=== PATIENT | male | born 1940 | race Caucasian/White ===

== ENCOUNTER 2023-11-29 12:49 | Outpatient (REF) | payer MEDICARE, SELFPAY ==
[2023-11-29 14:13] LABS: MANUAL DIFF FLAG NO
[2023-11-29 14:19] LABS: Basophils Percent Auto 0.3 % (0-2); Eosinophils Absolute Auto 0.2 X10*3/uL (0.0-0.4); Eosinophils Percent Auto 2.3 % (0-4); Hematocrit 37.5 % (42.0-52.0); Hemoglobin 12.9 g/dl (14.0-18.0); Imm Gran Abs Auto 0.03 X10*3/uL (0.00-0.03); Imm Gran Pct Auto 0.4 % (0.0-0.4); Lymphocytes Absolute Auto 1.3 X10*3/uL (1.2-4.9); Lymphocytes Percent Auto 17.4 % (20-40); Mean Corpuscular HGB Conc 34.4 g/dl (31.0-36.0); Mean Corpuscular Hemoglobin 31.1 pg (27.0-33.0); Mean Corpuscular Volume 90.4 fL (80.0-98.0); Mean Platelet Volume 10.3 fL (9.4-12.4); Monocytes Absolute Auto 0.6 X10*3/uL (0.1-1.2); Monocytes Percent Auto 8.6 % (2-11); Neutrophils Absolute Auto 5.3 x10*3/uL (2.0-8.3); Platelet Count 234 X10*3/uL (160-400); Red Blood Count 4.15 X10*6/uL (4.60-5.80); Red Cell Distribution Width 13.5 % (11.0-16.0); White Blood Count 7.4 X10*3/uL (4.8-10.8)
[2023-11-29 15:30] LABS: Alanine Aminotransferase 29 U/L (0-40); Albumin Level 3.8 g/dL (3.5-5.0); Alkaline Phosphatase 118 U/L (39-117); Aspartate Amino Transferase 18 U/L (5-37); Bilirubin Direct 0.1 mg/dL (0.0-0.5); Bilirubin Total 0.4 mg/dL (0.0-1.0); Blood Urea Nitrogen 15 mg/dL (9-16); Estimated Glomerular Filt Rate > 60; Total Protein 6.3 g/dL (6.5-8.0)
== END 2023-11-29 12:50 | disposition home or self-care (01) ==
LOC: HO.HVNA 12:49
PROVIDERS: Visit Provider Surgery
DX: T81.49XD Infection following a procedure, other surgical site, subsequent encounter (principal); Z79.2 Long term (current) use of antibiotics
CPT/HCPCS: 36415; 80076; 82565; 84520; 85025

== ENCOUNTER 2023-12-06 12:47 | Outpatient (REF) | payer MEDICARE, SELFPAY ==
[2023-12-06 12:50] LABS: MANUAL DIFF FLAG NO
[2023-12-06 12:55] LABS: Basophils Percent Auto 0.5 % (0-2); Eosinophils Absolute Auto 0.1 X10*3/uL (0.0-0.4); Hematocrit 39.4 % (42.0-52.0); Hemoglobin 13.4 g/dl (14.0-18.0); Imm Gran Abs Auto 0.02 X10*3/uL (0.00-0.03); Imm Gran Pct Auto 0.3 % (0.0-0.4); Lymphocytes Absolute Auto 1.4 X10*3/uL (1.2-4.9); Lymphocytes Percent Auto 21.6 % (20-40); Mean Corpuscular Hemoglobin 30.7 pg (27.0-33.0); Mean Corpuscular Volume 90.4 fL (80.0-98.0); Mean Platelet Volume 10.4 fL (9.4-12.4); Monocytes Absolute Auto 0.7 X10*3/uL (0.1-1.2); Monocytes Percent Auto 10.6 % (2-11); Neutrophils Absolute Auto 4.2 x10*3/uL (2.0-8.3); Platelet Count 268 X10*3/uL (160-400); Red Blood Count 4.36 X10*6/uL (4.60-5.80); Red Cell Distribution Width 13.4 % (11.0-16.0); White Blood Count 6.5 X10*3/uL (4.8-10.8)
[2023-12-06 13:38] LABS: Anion Gap 14 (12-20); Blood Urea Nitrogen 16 mg/dL (9-16); Calcium 9.6 mg/dL (8.4-10.2); Carbon Dioxide 28 mmol/L (22-29); Chloride 103 mmol/L (96-108); Estimated Glomerular Filt Rate > 60; Glucose Random 172 mg/dL (60-115); Potassium 4.1 mmol/L (3.3-5.1); Sodium 141 mmol/L (135-145)
== END 2023-12-06 12:48 | disposition home or self-care (01) ==
LOC: HO.HVNA 12:47
PROVIDERS: Visit Provider Surgery
DX: C43.71 Malignant melanoma of right lower limb, including hip (principal); Z79.2 Long term (current) use of antibiotics
CPT/HCPCS: 36415; 80048; 85025

== ENCOUNTER 2024-03-29 12:47 | Outpatient (AMB) | payer MEDICARE, SELFPAY ==
--- NOTE | 2024-03-29 13:04 | A.OFFVIS_ITS ---
Vital Signs 03/29/24 13:05 Height 6 ft 3 in Weight 227 lb 1.218 oz BMI 28.4 BP 128/82 Blood Pressure Location Rt brachial Position Sitting Pulse 74 Pulse Source Pulse Oximeter Intake Visit Reasons: DM/LVM Intake Note: New Patient presents today to establish treatment for Type 2 Diabetes Mellitus: Last Diabetic Eye exam: 2023 Last Podiatry Exam: Does not see a Security Public Safety Officer Most recent HbA1c: 11.5%, 03/29/2024 Random Glucose- 246mg/dL, Today Highway Inspector Required: No Accompanied by: Self / Same As Patient Allergies No Known Allergies Allergy (Verified 03/29/24 13:26) HPI Comments Details: The patient is an 84 year old male presenting for recent diagnosis of diabetes presenting for consultation Medical history: hypertension, anxiety He was recently hospitalized at [facility] March 13 to March 14. Presented with malaise, abdominal discomfort, polyuria. A1C elevated. Prior A1C last year in pre-diabetic range. He was started on short and long acting insulin-lantus 10units daily and aspart 1-5 units with meals. Reports numbers continue to be elevated though more recently improving. Checking fingerstick glucose 3 times/day. Average Mar 16-Mar 7 273. A1C today 11.7%. Using one touch ultra Diabetic eye exam 2023 Interested in diabetic education ROS CONSTITUTIONAL: Denies weight loss, fever and chills. HEENT: Denies changes in vision and hearing. RESPIRATORY: Denies SOB and cough. CV: Denies palpitations and CP GI: Denies abdominal pain, nausea, vomiting and diarrhea. : Denies dysuria and urinary frequency. MSK: Denies new myalgia and joint pain. SKIN: Denies rash and pruritus. NEUROLOGICAL: Denies headache PSYCHIATRIC: Denies recent changes in mood. PHYSICAL EXAM: GENERAL: Alert and oriented x 3. NAD EYES: EOMI. Anicteric. HENT: Moist mucous membranes. No scleral icterus. No cervical lymphadenopathy. LUNGS: Clear to auscultation bilaterally. CARDIOVASCULAR: Regular rate and rhythm. No murmur. No JVD. ABDOMEN: Soft, non-tender +bs EXTREMITIES: No edema. Non-tender. SKIN: No rashes or lesions. Warm. NEUROLOGIC: No focal neurological deficits. CN II-XII grossly intact PSYCHIATRIC: Cooperative. Appropriate mood and affect [facility] Surgical History Hx of carcinomas Hx of sebaceous cyst Hx of colonoscopy Family History Father No problems noted. Mother No problems noted. Social History Alcohol intake: current Alcohol intake frequency: does not drink Patient Tobacco Use Status: Never used Tobacco Physical Exam Vital Signs: Last Vital Signs Pulse 74 03/29/24 13:05 BP 128/82 03/29/24 13:05 BMI result Body Mass Index 28.4 Results AMB Hemoglobin A1c AMB Hemoglobin A1c 11.5 % Last Edit by NURIA Santos on 03/29/24 13:2 8 Results Reviewed Results Reviewed: Laboratory Last Values Glucose (Clinic) 246 mg/dL (60-115) H 03/29/24 13:10 Hgb A1c (Clinic) 11.5 % (4.0-6.0) H 03/29/24 13:27 Assessment & Plan Assessment & Plan (1) New onset type 2 diabetes mellitus: Code(s): E11.9 - Type 2 diabetes mellitus without complications Category: Medical Plan: Discussed diabetes. Discussed need for further diabetic education Discussed micro/macrovascular complications of diabetes Patient will start metformin-increasing dose every few days as tolerated to max 2000mg daily He will return in one month for follow up Orders: Orders Comprehensive Met. Panel 3 Months E11.9 - Type 2 diabetes mellitus without complications Microalbumin, Random (w Creat) 3 Months E11.9 - Type 2 diabetes mellitus without complications AMB Hemoglobin A1c 03/29/24 E11.9 - Type 2 diabetes mellitus without complications Hemoglobin A1c 3 Months E11.9 - Type 2 diabetes mellitus without complications Lipid Panel 3 Months E11.9 - Type 2 diabetes mellitus without complications Medications: New clotrimazole-betamethasone 1-0.05 % 1 appl topical BID 45 grams 0RF 2 weeks OneTouch Ultra Test (blood sugar diagnostic) four times daily 100 ea 3RF NS E11.9 - Type 2 diabetes mellitus without complications, Z79.4 - intermodal dispatcher (current) use of insulin metformin ER 2,000 mg (4 x 500 mg) PO DAILY 360 tabs 2RF Coding Level of Care Code Est Pt Level 5 (26346) Diagnoses New onset type 2 diabetes mellitus E11.9 Time Spent (min) 62
[2024-03-29 13:05] VITALS: BP 128/82; PULSE 74; BMI 28.4
[2024-03-29 13:14] LABS: Glucose, Whole Blood 246 mg/dL (60-115)
== END 2024-03-29 13:42 | disposition home or self-care (01) ==
PROVIDERS: PCP Internal Medicine; Visit Provider Internal Medicine
DX: E11.9 Type 2 diabetes mellitus without complications (principal)
CPT/HCPCS: 99215

== ENCOUNTER → 2024-03-29 12:47 | Outpatient (BNVA) | payer MEDICARE, SELFPAY | PROVIDERS: PCP Internal Medicine; Visit Provider Internal Medicine | DX: E11.9 Type 2 diabetes mellitus without complications (principal); Z79.4 Long term (current) use of insulin | CPT/HCPCS: 82947; 83036; 99212 ==

== ENCOUNTER 2024-04-26 12:52 | Outpatient (AMB) | payer MEDICARE, SELFPAY ==
--- NOTE | 2024-04-26 12:54 | A.OFFVIS_ITS ---
Vital Signs 04/26/24 12:56 Height 6 ft 3 in Weight 222 lb 10.67 oz BMI 27.8 BP 152/60 H Position Sitting Pulse 76 Pulse Source Pulse Oximeter Intake Visit Reasons: DM/LVM Intake Note: Patient presents today for a follow-up for Type 2 Diabetes Mellitus: Last Diabetic Eye exam: 01/2024, received Rx for glasses no exam. Last Podiatry Exam: Does not see a Health Care Marketing Manager Most recent HbA1c: 11.5%, 03/29/2024 Random Glucose- 112mg/dL, Today Janitor Caretaker Required: No Accompanied by: Self / Same As Patient Allergies No Known Allergies Allergy (Verified 04/26/24 12:55) HPI Comments Details: The patient is an 84 year old male presenting for recent diagnosis of diabetes presenting for follow up Medical history: hypertension, anxiety He was recently hospitalized at [facility] March 13 to March 14. Presented with malaise, abdominal discomfort, polyuria. A1C elevated. Prior A1C last year in pre-diabetic range. He was started on short and long acting insulin-lantus 10units daily and aspart 1-5 units with meals. A1C last visit 11.7%. He has not been taking novolog since starting metformin. He continues lantus 10 units. Fasting glucose x14 days 104. No lows Diabetic eye exam 2023 ROS CONSTITUTIONAL: Denies weight loss, fever and chills. HEENT: Denies changes in vision and hearing. RESPIRATORY: Denies SOB and cough. CV: Denies palpitations and CP GI: Denies abdominal pain, nausea, vomiting and diarrhea. : Denies dysuria and urinary frequency. MSK: Denies new myalgia and joint pain. SKIN: Denies rash and pruritus. NEUROLOGICAL: Denies headache PSYCHIATRIC: Denies recent changes in mood. PHYSICAL EXAM: GENERAL: Alert and oriented x 3. NAD EYES: EOMI. Anicteric. HENT: Moist mucous membranes. No scleral icterus. No cervical lymphadenopathy. LUNGS: Clear to auscultation bilaterally. CARDIOVASCULAR: Regular rate and rhythm. No murmur. No JVD. ABDOMEN: Soft, non-tender +bs EXTREMITIES: No edema. Non-tender. SKIN: No rashes or lesions. Warm. NEUROLOGIC: No focal neurological deficits. CN II-XII grossly intact PSYCHIATRIC: Cooperative. Appropriate mood and affect PFSH Surgical History Hx of carcinomas Hx of sebaceous cyst Hx of colonoscopy Family History Father No problems noted. Mother No problems noted. Social History Alcohol intake: current Alcohol intake frequency: does not drink Patient Tobacco Use Status: Never used Tobacco Physical Exam Vital Signs: Last Vital Signs Pulse 76 04/26/24 12:56 BP 152/60 H 04/26/24 12:56 BMI result Body Mass Index 27.8 Assessment & Plan Assessment & Plan (1) Insulin use (long-term) in type 2 diabetes: Code(s): E11.9 - Type 2 diabetes mellitus without complications; Z79.4 - snf (current) use of insulin Category: Medical Qualifiers: Diabetes mellitus complication status: with hyperglycemia Qualified Code(s): E11.65 - Type 2 diabetes mellitus with hyperglycemia; Z79.4 - keno terminal operator (current) use of insulin Plan: Fasting glucose is at goal Recheck A1C at 3 months. Will see in primary office Congratulated on interval improvement Medications: New fluconazole 150 mg PO DAILY 5 days 5 tabs 0RF Changed From pen needle, diabetic (BD Ultra-Fine Laura Pen Needle) As directed 1,200 ea To BD Ultra-Fine Laura Pen Needle (pen needle, diabetic) Once daily 100 ea 3RF NS Coding Level of Care Code Est Pt Level 4 (38065) Diagnoses Type 2 diabetes mellitus with hyperglycemia, with long-term current use of insulin E11.65; Z79.4 Diabetes mellitus complication status: with hyperglycemia
[2024-04-26 12:56] VITALS: BP 152/60; PULSE 76; BMI 27.8
[2024-04-26 13:07] LABS: Glucose, Whole Blood 112 mg/dL (60-115)
== END 2024-04-26 13:30 | disposition home or self-care (01) ==
PROVIDERS: PCP Internal Medicine; Visit Provider Internal Medicine
DX: E11.65 Type 2 diabetes mellitus with hyperglycemia (principal); Z79.4 Long term (current) use of insulin
CPT/HCPCS: 99214

== ENCOUNTER → 2024-04-26 12:52 | Outpatient (BNVA) | payer MEDICARE, SELFPAY | PROVIDERS: PCP Internal Medicine; Visit Provider Internal Medicine | DX: E11.65 Type 2 diabetes mellitus with hyperglycemia (principal); Z79.4 Long term (current) use of insulin | CPT/HCPCS: 82947; 99212 ==

== ENCOUNTER 2024-06-09 13:03 | Outpatient (AMB) | payer MEDICARE, SELFPAY ==
--- NOTE | 2024-06-09 13:12 | MHC.PC.OV ---
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 Intake Note: New patient visit Paint Roller Winder Required: No Allergies No Known Allergies Allergy (Verified 06/09/24 13:13) Tobacco use date assessed: 06/09/24 Fall risk assessment: No Falls in past year Dental Screening Dental Screen Date: 06/09/24 Did you have a dental visit in the last 12 months?: Yes Did you have a dental problem in the last 6 months where you did not have access to dental care?: No Was dental information given to patient?: Patient has dentist HPI HPI Comments History of Present Illness Details The patient is an 84 year old male with a past medical history of diabetes, hypertension, BCC, allergies presenting for follow up He recently saw me in endocrinology to discuss his new diagnosis of diabetes. His current medications are lantus 10 untis and metformin 2000mg daily. Reviewed glucometer-checking once daily with fasting glucose 70-130. He was recently hospitalized at [facility] March 13 to March 14. Presented with malaise, abdominal discomfort, polyuria. A1C elevated. Prior A1C last year in pre-diabetic range. He was started on short and long acting insulin-lantus 10units daily and aspart 1-5 units with meals. A1C last visit 11.7%. He has not been taking novolog since starting metformin. He continues lantus 10 units. Fasting glucose x14 days 104. No lows Diabetic eye exam 2023 History of BCC. Hasnt seen dermatology awhile. Has noticed a non healing crusty lesion in front of the left ear. continues to suffer from intermittent jock itch CV: Blood pressure has been well controlled ROS see HPI PHYSICAL EXAM: GENERAL: Alert and oriented x 3. NAD EYES: EOMI. Anicteric. HENT: Moist mucous membranes. No scleral icterus. No cervical lymphadenopathy. LUNGS: Clear to auscultation bilaterally. CARDIOVASCULAR: Regular rate and rhythm. No murmur. No JVD. ABDOMEN: Soft, non-tender +bs EXTREMITIES: No edema. Non-tender. SKIN: No rashes or lesions. Warm. NEUROLOGIC: No focal neurological deficits. CN II-XII grossly intact PSYCHIATRIC: Cooperative. Appropriate mood and affect [facility] Medical History (Updated 06/12/24 @ 22:07 by Tamia Arnold MD) Sebaceous cyst Basal cell carcinoma (BCC) of face Obesity, Class I, BMI 30.0-34.9 (see actual BMI) HTN (hypertension) Hx of basal cell carcinoma Allergies Surgical History Hx of carcinomas Hx of sebaceous cyst Hx of colonoscopy Family History (Updated 06/09/24 @ 13:35 by Maylin Richard CMA) Father No problems noted. Mother Pacemaker Brother HTN (hypertension) Son Thyroid cancer Daughter Thyroid cancer Diabetes Sister Memory deficit Social History (Updated 06/09/24 @ 13:35 by Maylin Richard CMA) Housing: Apartment Alcohol intake: current Alcohol intake frequency: does not drink Patient Tobacco Use Status: Never used Tobacco e-Cigarette/Vaping Use: Never Used service: No Current occupational status: retired Cognitive needs: No Hearing needs: No Vision needs: Yes (glasses) Questionnaire PHQ-9 Over the last 2 weeks, how often have you been bothered by any of the following problems? 1. Little interest or pleasure in doing things: not at all 2. Feeling down, depressed, or hopeless: not at all 3. Trouble falling or staying asleep, or sleeping too much: not at all 4. Feeling tired or having little energy: not at all 5. Poor appetite or overeating: not at all 6. Feeling bad about yourself - or that you are a failure or have let yourself or your family down: not at all 7. Trouble concentrating on things, such as reading the newspaper or watching television: not at all 8. Moving or speaking so slowly that other people could have noticed. Or the opposite - being so fidgety or restless that you have been moving around a lot more than usual: not at all 9. Thoughts that you would be better off or of hurting yourself in some way: not at all Total score: 0 Depression Screening Interpretation: Negative Depression Screening Done: Yes 46615 - PHQ-9 Billing: Yes Source: Developed by Drs. Gideon Aleman, Denisse Ozuna, Evert Mcgregor and colleagues, with an educational sujit from [employer]. Thrive Questionnaire I am a: Patient What is your living situation today?: I have a steady place to live Within the past 12 months, did the food you bought not last and you didn't have the money to get more?: Never true Within the past 12 months, did you worry whether your food would run out before you got money to buy more?: Never true Do you have trouble paying for medicines?: No Do you have trouble getting transportation to medical appointments?: No Do you have trouble paying your heating and electricity bill?: No Do you have trouble taking care of your child, family member or friend?: No Do you have trouble with day-to-day activities such as bathing, preparing meals, shopping, managing finances, etc.?: No Are you currently unemployed and looking for a job?: No Are you interested in more education?: No Please select the resources that you would like help with: None Currently or been in a relationship where the following occur: No concerns reported THRIVE Score: 0 AUDIT C Alcohol Use Questionnaire (AUDIT-C) 1. How often do you have a drink containing alcohol?: 4 or more times a week 2. How many drinks containing alcohol do you have on a typical day when you are drinking?: 1 or 2 3. How often do you have six or more drinks on one occasion?: Never Total Score: 4 FIGUEROA-7 AMB Questionnaire FIGUEROA-7 Feeling nervous, anxious, or on edge: 0 = Not at all Not being able to stop or control worryin = Not at all Worrying too much about different things: 0 = Not at all Trouble relaxin = Not at all Being so restless that it is hard to sit still: 0 = Not at all Feeling afraid as if something awful might happen: 0 = Not at all Source: Developed by Drs. Gideon Aleman, Evert Turner and colleagues, with an educational sujit from [employer]. Physical exam (Primary Care) Vital Signs: Last Vital Signs Pulse 72 06/09/24 13:22 BP 136/54 L 06/09/24 13:22 Pulse Ox 98 06/09/24 13:22 Oxygen Delivery Method Room Air 06/09/24 13:22 BMI result Body Mass Index 27.8 Tobacco/Smoking Status: Tobacco use Status Tobacco use date assessed 06/09/24 06/09/24 13:20 Patient Tobacco Use Status Never used Tobacco 06/09/24 13:35 e-Cigarette/Vaping Use Never Used 06/09/24 13:35 PHQ-9: PHQ-9 Score PHQ-9: Total score 0 06/12/24 22:09 Depression Screening Interpretation: Negative Currently or been in a relationship where the following occur: No concerns reported Results AMB Hemoglobin A1c AMB Hemoglobin A1c 6.1 % Last Edit by Maylin Richard CMA on 06/09/24 13:39 Results Reviewed Results Reviewed: Laboratory Last Values Hgb A1c (Clinic) 6.1 % (4.0-6.0) H 06/09/24 13:36 Coding Level of Care Code Est Pt Level 4 (39673) Diagnoses New onset type 2 diabetes mellitus E11.9 Primary hypertension I10 Hypertension type: primary hypertension Basal cell carcinoma (BCC) of face C44.310 Assessment & Plan Assessment & Plan (1) New onset type 2 diabetes mellitus: Code(s): E11.9 - Type 2 diabetes mellitus without complications Category: Medical Plan: well controlled on current regimen. annual eye exam (2) HTN (hypertension): Code(s): I10 - Essential (primary) hypertension Category: Medical Qualifiers: Hypertension type: primary hypertension Qualified Code(s): I10 - Essential (primary) hypertension Plan: controlled on current meds (3) Basal cell carcinoma (BCC) of face: Code(s): C44.310 - Basal cell carcinoma of skin of unspecified parts of face Category: Medical Plan: with non healing left cheek lesion-referral placed Orders: Orders Complete Blood Count Auto Diff 06/09/24 E11.65 - Type 2 diabetes mellitus with hyperglycemia, E11.9 - Type 2 diabetes mellitus without complications, Z79.4 - terminal gauger (current) use of insulin Comprehensive Met. Panel 06/09/24 E11.65 - Type 2 diabetes mellitus with hyperglycemia, E11.9 - Type 2 diabetes mellitus without complications, Z79.4 - terminal gauger (current) use of insulin Lipid Panel 06/09/24 E11.65 - Type 2 diabetes mellitus with hyperglycemia, E11.9 - Type 2 diabetes mellitus without complications, Z79.4 - terminal gauger (current) use of insulin AMB Hemoglobin A1c 06/09/24 E11.9 - Type 2 diabetes mellitus without complications Hemoglobin A1c 06/09/24 E11.65 - Type 2 diabetes mellitus with hyperglycemia, E11.9 - Type 2 diabetes mellitus without complications, Z79.4 - terminal gauger (current) use of insulin Microalbumin, Random (w Creat) 06/09/24 E11.65 - Type 2 diabetes mellitus with hyperglycemia, E11.9 - Type 2 diabetes mellitus without complications, Z79.4 - terminal gauger (current) use of insulin Referrals Dermatology Referral L98.9 - Disorder of the skin and subcutaneous tissue, unspecified Medications: New nystatin 1 appl topical DAILY 60 grams 3RF Refilled fluconazole 150 mg PO DAILY 5 tabs 0RF 5 days clotrimazole-betamethasone 1-0.05 % 1 appl topical BID 45 grams 0RF 2 weeks
[2024-06-09 13:22] VITALS: BP 136/54; PULSE 72; O2SAT 98; BMI 27.8
== END 2024-06-09 13:58 | disposition home or self-care (01) ==
PROVIDERS: PCP Internal Medicine; Visit Provider Internal Medicine
DX: E11.9 Type 2 diabetes mellitus without complications (principal); I10 Essential (primary) hypertension; C44.310 Basal cell carcinoma of skin of unspecified parts of face

== ENCOUNTER → 2024-06-09 13:03 | Outpatient (BNVA) | payer MEDICARE, SELFPAY | PROVIDERS: PCP Internal Medicine; Visit Provider Internal Medicine | DX: E11.9 Type 2 diabetes mellitus without complications (principal); I10 Essential (primary) hypertension; C44.319 Basal cell carcinoma of skin of other parts of face; Z79.4 Long term (current) use of insulin | CPT/HCPCS: 83036; 99212 ==

== ENCOUNTER → 2024-06-20 23:59 | Outpatient (BNV) | payer MEDICARE, SELFPAY | PROVIDERS: PCP Internal Medicine; Visit Provider Internal Medicine | DX: C43.71 Malignant melanoma of right lower limb, including hip (principal); T81.89XD Other complications of procedures, not elsewhere classified, subsequent encounter; I10 Essential (primary) hypertension | CPT/HCPCS: G0179 ==

== ENCOUNTER 2024-10-09 10:37 | Outpatient (AMB) | payer MEDICARE, SELFPAY ==
--- NOTE | 2024-10-09 10:39 | MHC.PC.OV ---
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 Required: No Allergies No Known Allergies Allergy (Verified 10/09/24 10:40) Medication List - Last Reconciled 10/09/24 by Tamia Arnold MD alcohol swabs (BD Alcohol Swabs) 1 pad topical TID 90 days amlodipine 10 mg PO DAILY aspirin 81 mg PO DAILY BD Ultra-Fine Laura Pen Needle (pen needle, diabetic) Once daily NS clotrimazole-betamethasone 1-0.05 % 1 appl topical BID 2 weeks [elderberry .] fluconazole 150 mg PO DAILY 5 days Lantus Solostar U-100 Insulin (insulin glargine) 10 units (0.1 mL) subcut BEDTIME NS loratadine 10 mg PO DAILY metformin 2,000 mg PO DAILY metformin ER 2,000 mg (4 x 500 mg) PO DAILY multivitamin 1 tab PO DAILY nystatin 1 appl topical DAILY OneTouch Delica Plus Lancet (lancets) once daily NS OneTouch Ultra Test (blood sugar diagnostic) As directed NS OneTouch Ultra Test (blood sugar diagnostic) four times daily NS Tobacco use date assessed: 10/09/24 Fall risk assessment: No Falls in past year Last assessed Fall Risk: 10/09/24 Dental Screening Dental Screen Date: 10/09/24 Did you have a dental visit in the last 12 months?: Yes Did you have a dental problem in the last 6 months where you did not have access to dental care?: No Was dental information given to patient?: No HPI HPI Comments History of Present Illness Details The patient is an 84 year old male with a past medical history of diabetes, hypertension, BCC, allergies presenting for [facility] Diabetes: A1C controlled on metformin. Previously on lantus 10 unitsand metformin 2000mg daily. Diagnosed 2023. Reviewed glucometer-checking once daily with fasting glucose 70-130. He was recently hospitalized at [facility] March 13 to March 14. Presented with malaise, abdominal discomfort, polyuria. A1C elevated. Prior A1C last year in pre-diabetic range. He was started on short and long acting insulin-lantus 10units daily and aspart 1-5 units with meals. A1C last visit 11.7%. He has not been taking novolog since starting metformin. He continues lantus 10 units. Fasting glucose x14 days 104. No lows Diabetic eye exam 2023 History of BCC, melanoma. Follows with dermatology-JUAN. He is UTD CV: Blood pressure has been well controlled on amlodipine Dr Avitia for eye exams 10/23 Memory HRA reviewed Care team reviewed Medications reconciled Negative fall PHQ9 negative ROS see HPI PHYSICAL EXAM: GENERAL: Alert and oriented x 3. NAD EYES: EOMI. Anicteric. HENT: Moist mucous membranes. No scleral icterus. No cervical lymphadenopathy. LUNGS: Clear to auscultation bilaterally. CARDIOVASCULAR: Regular rate and rhythm. No murmur. No JVD. ABDOMEN: Soft, non-tender +bs EXTREMITIES: No edema. Non-tender. SKIN: No rashes or lesions. Warm. NEUROLOGIC: No focal neurological deficits. CN II-XII grossly intact PSYCHIATRIC: Cooperative. Appropriate mood and affect [facility] Medical History Sebaceous cyst Basal cell carcinoma (BCC) of face Obesity, Class I, BMI 30.0-34.9 (see actual BMI) HTN (hypertension) Hx of basal cell carcinoma Allergies Surgical History Hx of carcinomas Hx of sebaceous cyst Hx of colonoscopy Family History Father No problems noted. Mother Pacemaker Brother HTN (hypertension) Son Thyroid cancer Daughter Thyroid cancer Diabetes Sister Memory deficit Social History Housing: Apartment Alcohol intake: current Alcohol intake frequency: does not drink Patient Tobacco Use Status: Never used Tobacco e-Cigarette/Vaping Use: Never Used service: No Current occupational status: retired Cognitive needs: No Hearing needs: No Vision needs: Yes (glasses) Questionnaire PHQ-9 Over the last 2 weeks, how often have you been bothered by any of the following problems? 1. Little interest or pleasure in doing things: not at all 2. Feeling down, depressed, or hopeless: not at all 3. Trouble falling or staying asleep, or sleeping too much: not at all 4. Feeling tired or having little energy: several days 5. Poor appetite or overeating: not at all 6. Feeling bad about yourself - or that you are a failure or have let yourself or your family down: not at all 7. Trouble concentrating on things, such as reading the newspaper or watching television: not at all 8. Moving or speaking so slowly that other people could have noticed. Or the opposite - being so fidgety or restless that you have been moving around a lot more than usual: not at all 9. Thoughts that you would be better off or of hurting yourself in some way: not at all Total score: 1 Depression Screening Interpretation: Negative Depression Screening Done: Yes 78034 - PHQ-9 Billing: Yes Source: Developed by Drs. Gideon Aleman, Denisse Ozuna, Evert Mcgregor and colleagues, with an educational sujit from [email or web address]. Thrive Questionnaire Date Thrive assessed: 10/09/24 I am a: Patient What is your living situation today?: I have a steady place to live Within the past 12 months, did the food you bought not last and you didn't have the money to get more?: Never true Within the past 12 months, did you worry whether your food would run out before you got money to buy more?: Never true Do you have trouble paying for medicines?: No Do you have trouble getting transportation to medical appointments?: No Do you have trouble paying your heating and electricity bill?: No Do you have trouble taking care of your child, family member or friend?: No Do you have trouble with day-to-day activities such as bathing, preparing meals, shopping, managing finances, etc.?: No Are you currently unemployed and looking for a job?: No Are you interested in more education?: No Please select the resources that you would like help with: None Currently or been in a relationship where the following occur: No concerns reported THRIVE Score: 0 AUDIT C Alcohol Use Questionnaire (AUDIT-C) 1. How often do you have a drink containing alcohol?: 4 or more times a week 2. How many drinks containing alcohol do you have on a typical day when you are drinking?: 1 or 2 3. How often do you have six or more drinks on one occasion?: Daily or almost daily Total Score: 8 Score Reviewed/Action Taken: Yes FIGUEROA-7 AMB Questionnaire FIGUEROA-7 Date FIGUEROA - 7 assessed: 10/09/24 Feeling nervous, anxious, or on edge: 0 = Not at all Not being able to stop or control worryin = Not at all Worrying too much about different things: 0 = Not at all Trouble relaxin = Not at all Being so restless that it is hard to sit still: 0 = Not at all Becoming easily annoyed or irritable: 0 = Not at all Feeling afraid as if something awful might happen: 0 = Not at all Total FIGUEROA-7 score (0-4 normal; 5-9 mild; 10-14 moderate; 15-21 severe): 0 Source: Developed by Drs. Gideon Aleman, Denisse Ozuna, Evert Mcgregor and colleagues, with an educational sujit from [email or web address]. FIGUEROA-7 Assessment Billing FIGUEROA-7 Assessment Tool: FIGUEROA-7 Assessment 16309 Physical exam (Primary Care) Vital Signs: Last Vital Signs Temp 98.3 F 10/09/24 10:45 Pulse 73 10/09/24 10:45 Resp 16 10/09/24 10:45 BP 140/50 H 10/09/24 10:45 Pulse Ox 98 10/09/24 10:45 Oxygen Delivery Method Room Air 10/09/24 10:45 BMI result Body Mass Index 28.7 Tobacco/Smoking Status: Tobacco use Status Tobacco use date assessed 10/09/24 10/09/24 10:48 Patient Tobacco Use Status Never used Tobacco 10/09/24 10:48 e-Cigarette/Vaping Use Never Used 10/09/24 10:48 PHQ-9: PHQ-9 Score PHQ-9: Total score 1 10/11/24 16:34 Depression Screening Interpretation: Negative Thrive Assessment: Date of Thrive Assessment Date Thrive assessed 10/09/24 10/09/24 10:48 Currently or been in a relationship where the following occur: No concerns reported Coding Level of Care Code Est Pt Level 4 (91198) Diagnoses Medicare annual wellness visit, subsequent Z00.00 Type 2 diabetes mellitus with hyperglycemia, with long-term current use of insulin E11.65; Z79.4 Diabetes mellitus complication status: with hyperglycemia 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 Stopped insulin. Keeps at home in case of hyperglycemia (3) Melanoma: Code(s): C43.9 - Malignant melanoma of skin, unspecified Category: Medical Qualifiers: Laterality: right Melanoma location: upper extremity including shoulder Qualified Code(s): C43.61 - Malignant melanoma of right upper limb, including shoulder Plan: s/p excision by dermatology. He is following with dermatology closely Orders: Orders Lipid Panel 10/09/24 C43.9 - Malignant melanoma of skin, unspecified, E11.65 - Type 2 diabetes mellitus with hyperglycemia, I10 - Essential (primary) hypertension, Z79.4 - FDC (current) use of insulin Complete Blood Count Auto Diff 10/09/24 C43.9 - Malignant melanoma of skin, unspecified, E11.65 - Type 2 diabetes mellitus with hyperglycemia, I10 - Essential (primary) hypertension, Z79.4 - FDC (current) use of insulin Comprehensive Met. 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
--- OUTSIDE RECORDS SUMMARY | 2024-10-09 10:40 | XMS_ITS | Clinical Summary ---
Author Organization [facility] instruMagic Address [address] [place] [address] Phone Care Team Providers Care Horticultural Specialty Grower Name Role Phone Tamia Arnold MD Primary Care Provider [phone] Allergies No known active allergies Medications metFORMIN (GLUCOPHAGE) 500 mg tablet Take 4 Tablets by mouth daily. Active insulin glargine (LANTUS) 100 unit/mL injection Inject 10 Units into the skin at bedtime. Active amLODIPine (NORVASC) 10 mg tablet Take 1 Tablet by mouth daily. Active loratadine (CLARITIN) 10 mg tablet Take 1 Tablet by mouth daily. Active aspirin 81 mg EC tablet Take 1 Tablet by mouth daily. Active multivitamin (MULTIPLE VITAMINS ORAL) Take by mouth. Active Active Problems Problem Noted Date Diagnosed Date HTN (hypertension) 04/11/2024 Overview (07/14/2024): Last Assessment & Plan: The patient has a history of arterial hypertension. The patient's blood pressure today was noted to be well controlled. We'll continue the current antihypertensive medication regimen. Assessment & Plan (09/05/2024 4:17 PM EST): The patient has a history of arterial hypertension. The patient's blood pressure today was noted to be well controlled. We'll continue the current antihypertensive medication regimen. Pacemaker 04/11/2024 Overview (07/14/2024): Last Assessment & Plan: The patient has been having episodes of high-grade AV block during the sleep time hours. Specifically on the cardiac monitoring he has been noted to have episodes of 2-1 AV block as well as brief episodes of third-degree AV block. These episodes are occurring during the sleep time hours. Given that the episodes are happening mostly during sleep time hours, will refer the patient for a sleep study to rule out sleep apnea. On today's visit, his EKG showed a normal sinus rhythm with first-degree AV block and a right bundle branch block. She denies any symptoms of dizziness, near-syncope, or syncope. On the other hand, given his occasional episodes of high-grade AV block, we need to consider the possibility of a pacemaker placement. During today's visit with me, the patient was also evaluated in person by adjunct philosophy faculty (Dr. Hook). Dr. Hook discussed with the patient the possibility of a pacemaker placement. The patient is in agreement to proceed with a pacemaker placement. Dr. Hook will schedule the patient for pacemaker placement to be as soon as possible. In the meantime, we will continue the patient's current ambulatory monitoring analyst. Assessment & Plan (09/05/2024 4:17 PM EST): The patient was noted to have evidence of high-grade AV block. Echocardiogram done in February 2024 showed a normal LVEF at 60 to 65%, normal RV size and function, and mild aortic valve insufficiency. The report of the echocardiogram describes the presence of a focal area of hypokinesis in the basal inferior wall that was described in the report as a normal variant. I personally reviewed the images of the echocardiogram and the contractility of the basal inferior wall appears to be normal. Eventually, the patient underwent a pacemaker placement in May 2024 at [facility]. Will arrange for the device clinic to download the patient's cardiac device data to make sure that his pacemaker is functioning normally. Diabetes mellitus 04/11/2024 ERASMO (obstructive sleep apnea) 04/11/2024 Overview (07/14/2024): Last Assessment & Plan: The patient has a history of sleep apnea. However, he is not currentl yon CPAP therapy. Discussed importance of sleep apnea treatment particularly given episodes of AV block at night. Will order a sleep study for reevaluation. Encounters Date Type Department Care Team Description 09/07/2024 3:30 PM EST Ancillary Procedure [facility] [address] [place] [address] 09/05/2024 10:50 AM EST Office Visit [facility] [address] [place] [address] Dheeraj Lee MD Primary hypertension (Primary Dx); Pacemaker 09/05/2024 Telephone [facility] - [address] [place] [address] Dheeraj Lee MD 08/08/2024 4:20 AM EST Ancillary Procedure [facility] - [address] [place] [address] from Last 3 Months Social History Tobacco Use Types Packs/Day Years Used Date Smoking Tobacco: Never Smokeless Tobacco: Never Alcohol Use Standard Drinks/Week Comments Yes 0 (1 standard drink = 0.6 oz pur e alcohol) daily glass of wine Sex and Gender Information Value Date Recorded Sex Assigned at Not on file Legal Sex Male 1:52 PM EST Gender Identity Not on file Sexual Orientation Not on file Obstetrics History Last Filed Vital Signs Vital Sign Reading Time Taken Comments Blood Pressure 138/70 09/05/2024 11:00 AM EST Pulse 88 09/05/2024 11:00 AM EST Temperature - - Respiratory Rate - - Oxygen Saturation 99% 09/05/2024 11:00 AM EST Inhaled Oxygen Concentration - - Weight 99.8 kg (220 lb) 09/05/2024 11:00 AM EST Height 190.5 cm (6' 3 ) 09/05/2024 11:00 AM EST Body Mass Index 27.5 09/05/2024 11:00 AM EST Plan of Treatment Upcoming Encounters Date Type Department Care Team (Late st Contact Info) Description 06/04/2025 1:30 PM EDT Ancillary Procedure [facility] [address] [place] [address] Health Maintenance Due Date Last Done Comments Diabetes: Annual GFR (Glomerular Filtration Rate) 1940 Diabetes: Annual Foot Exam 01/14/1950 Diabetes: Annual Retina Eye Exam 01/14/1950 DTaP,Tdap,and Td Vaccines (1 - Tdap) 01/14/1959 Pneumococcal Vaccine: 50+ Years (1 of 2 - PCV) 01/14/1959 RSV Immunization Patients 60+ Years Old (1 - 1-dose 75+ series) 01/14/2015 Cholesterol Screening (Lipid Panel) 07/21/2022 Depression Screening 07/21/2022 Falls Risk Assessment 07/21/2022 Medicare Annual Wellness Visit 07/21/2022 Social Influencers of Health Screening 07/21/2022 Zoster Vaccines (2 of 2) 07/21/2023 05/26/2023 Diabetes: Annual Urine Albumin-Creatinine Ratio (uACR) 05/31/2024 Diabetes: Blood Sugar Control Test (HGBA1C) 05/31/2024 Hypertension/CHF/CAD Annual BMP Blood Test 06/05/2024 COVID-19 Vaccine Completed 06/15/2024, , 06/11/2021, Additional history exists Influenza Vaccine Completed 06/15/2024, , 05/21/2022, Additional history exists HIB Vaccines Aged Out No longer eligi ble based on patient's age to complete this topic HPV Vaccines Aged Out No longer eligi ble based on patient's age to complete this topic Hepatitis A Vaccines Aged Out No long er eligible based on patient's age to complete this topic Hepatitis B Vaccines Aged Out No long er eligible based on patient's age to complete this topic IPV Vaccines Aged Out No longer eligi ble based on patient's age to complete this topic MMR Vaccines Aged Out No longer eligi ble based on patient's age to complete this topic Meningococcal ACWY Vaccine Aged Out N o longer eligible based on patient's age to complete this topic Meningococcal B Vacine Aged Out No lo nger eligible based on patient's age to complete this topic RSV Immunization Patients Under 20 months Aged Out No longer eligible based on patient's age to complete this topic Varicella Vaccines Aged Out No longer eligible based on patient's age to complete this topic Medical Devices Implanted Type Area Fabrication And Assembly Supervisor Device Identifier Shelf Expiration Date Model / Serial / Lot Medt-Card Kalpana Xt Mri [id number] Implanted:07/2024 (Quantity not on file) Cardiac Pacemaker [employer] - CARDIAC RHYTH-CRDM KALPANA XT DR EVAN [id number] / [id number] / Procedures Procedure Name Priority Date/Time Associated Diagnosis Comments CARDIAC DEVICE CHECK- REMOTE- MURJ Routine 09/07/2024 3:27 PM EST CARDIAC DEVICE CHECK- REMOTE- MURJ Routine 08/08/2024 4:16 AM EST from Last 3 Months Results * Cardiac device check - Remote- MURJ (09/07/2024 3:27 PM EST) Only the most recent of2 resultswithin the time period is included. 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 Trigger 2.625 CV DEVICE CHECK Battery Status Middle of Service CV DEVICE CHECK Rommel Statistic RA Percent Paced 18.32 CV DEVICE CHECK Rommel Statistic RV Percent Paced 45.19 CV DEVICE CHECK Atrial Tachy Statistic AT/AF [place] Percent 0.00 CV DEVICE CHECK Lead Channel Sensing Intrinsic Amplitude 2.875 CV DEVICE CHECK Lead Channel Setting Sensing Sensitivity 0.30 CV DEVICE CHECK Lead Channel Impedance Value 380 CV DEVICE CHECK Lead Channel Pacing Threshold Amplitude 0.500 CV DEVICE CHECK Lead Channel Pacing Threshold Pulse Width 0.4 CV DEVICE CHECK Lead Channel RA Pacing Threshold Date 2024-09-06 CV DEVICE CHECK Lead Channel Setting Pacing Amplitude 2.750 CV DEVICE CHECK Lead Channel Setting Pacing Pulse Width 0.4 CV DEVICE CHECK Lead Channel Sensing Intrinsic Amplitude 4.625 CV DEVICE CHECK Lead Channel Setting Sensing Sensitivity 0.90 CV DEVICE CHECK Lead Channel Impedance Value 456 CV DEVICE CHECK Lead Channel Pacing Threshold Amplitude 0.875 CV DEVICE CHECK Lead Channel Pacing Threshold Pulse Width 0.4 CV DEVICE CHECK Lead Channel RV Pacing Threshold Date 2024-09-06 CV DEVICE CHECK Lead Channel Setting Pacing Amplitude 2.750 CV DEVICE CHECK Lead Channel Setting Pacing Pulse Width 0.4 CV DEVICE CHECK Rommel Setting Mode (NBG Code) AAIR<=>DDDR CV DEVICE CHECK Rommel Setting Lower Rate Limit 60 CV DEVICE CHECK Rommel Setting AT Mode Switch Rate 171 CV DEVICE CHECK Rommel Setting Maximum Tracking Rate 130 CV DEVICE CHECK Rommel Setting Maximum Sensor Rate 130 CV DEVICE CHECK Rommel Setting PAV Delay 180 CV DEVICE CHECK Rommel Setting LATISHA Delay 150 CV DEVICE CHECK Zone Setting Type Category AT/AF CV DEVICE CHECK Rate 171 CV DEVICE CHECK Therapies Some Rx Off CV DEVIC E CHECK Zone Setting Status Monitor CV DEVICE CHECK Zone ID 2 CV DEVICE CHECK Zone Setting Type Category VT CV DEVICE CHECK Rate 150 CV DEVICE CHECK Zone Setting Status ENABLED CV DEVICE CHECK Zone ID 6 CV DEVICE CHECK Date of Service 2024-11-12 CV DEVICE CHECK Anatomical Region Laterality Modality Device Interroga tion 09/06/2024 9:11 PM EST Impressions 09/07/2024 3:25 PM EST Normal Remote: No Events Provider Request * Normal Device Function * Alerts or events: None * Battery: OK, 11.67 yrs * Sensing, impedance and thresholds reviewed * Programmed parameters reviewed * Presenting rhythm reviewed * Heart Rate Histograms reviewed * No significant changes noted Narrative Procedure Note Cristy Crow PA - 09/07/2024 IMPRESSION: Normal Remote: No Events Provider Request * Normal Device Function * Alerts or events: None * Battery: OK, 11.67 yrs * Sensing, impedance and thresholds reviewed * Programmed parameters reviewed * Presenting rhythm reviewed * Heart Rate Histograms reviewed * No significant changes noted Cristy PAUL CV IMPLANTABLE CARDIAC DEVICE [place] OCEDURES Final Result from Last 3 Months Insurance MEDICAID - [place] MEDICARE ADVANTAGE Care Teams Horticultural Specialty Grower Relationship Specialty Start Date End Date Tamia Arnold MD PCP - General 04/11/24
[2024-10-09 10:45] VITALS: BP 140/50; PULSE 73; RESP 16; TEMP 36.8; O2SAT 98; BMI 28.7
== END 2024-10-09 11:15 | disposition home or self-care (01) ==
PROVIDERS: PCP Internal Medicine; Visit Provider Internal Medicine
DX: Z00.00 Encounter for general adult medical examination without abnormal findings (principal); E11.65 Type 2 diabetes mellitus with hyperglycemia; Z79.4 Long term (current) use of insulin; C43.61 Malignant melanoma of right upper limb, including shoulder

== ENCOUNTER 2024-10-09 11:19 | Outpatient (REF) | payer MEDICARE, SELFPAY ==
--- OUTSIDE RECORDS SUMMARY | 2024-10-09 11:21 | XMS_ITS | Clinical Summary ---
Author Organization [facility] [employer] Address [address] [place] [address] Phone Care Team Providers Care Finger Grip Machine Operator Name Role Phone Tamia Arnold MD Primary Care Provider [phone] Allergies No known active allergies Medications metFORMIN [...] patient was also evaluated in person by central office supervisor (Dr. Hook). Dr. Hook discussed with the patient the possibility of a pacemaker placement. The patient is in agreement to proceed with a pacemaker placement. Dr. Hook will schedule the patient for pacemaker placement to be as soon as possible. In the meantime, we will continue the patient's current ambulatory hall monitor. Assessment & Plan (09/05/2024 4:17 PM EST): [...] a pacemaker placement in May 2024 at [facility]. Will arrange for the device clinic [...] Description 09/07/2024 3:30 PM EST Ancillary Procedure [facility] [address] [place] [address] 09/05/2024 10:50 AM EST Office Visit [facility] [address] [place] [address] Dheeraj Lee MD Primary hypertension (Primary Dx); Pacemaker 09/05/2024 Telephone [facility] - [address] [place] [address] Dheeraj Lee MD 08/08/2024 4:20 AM EST Ancillary Procedure [facility] - [address] [place] [address] from Last 3 Months Social History Tobacco [...] Description 06/04/2025 1:30 PM EDT Ancillary Procedure [facility] - [address] [facility] [place] [address] Health Maintenance Due Date [...] this topic Medical Devices Implanted Type Area Support Services Specialist Device Identifier Shelf Expiration Date Model / Serial / Lot Medt-Card Kalpana Xt Mri [id number] Implanted:07/2024 (Quantity not on file) Cardiac Pacemaker [employer] - CARDIAC RHYTH-CRDM KAPLANA XT DR EVAN [id number] / [id number] / Procedures Procedure Name Priority Date/Time Associated Diagnosis Comments CARDIAC DEVICE CHECK- REMOTE- MURJ Routine 09/07/2024 3:27 PM EST CARDIAC DEVICE CHECK- REMOTE- MURJ Routine 08/08/2024 4:16 AM EST from Last 3 Months Results * Cardiac device check - Remote- MURJ (09/07/2024 3:27 PM EST) Only the most recent of2 resultswithin the time period is included. Date Time Interrogation Session [id number] CV DEVICE CHECK Type Interrogation Session Remote CV DEVICE CHECK Implantable Pulse Generator Support Services Specialist MDT CV DEVICE CHECK Implantable Pulse Generator Type IPG CV DEVICE CHECK Implantable Pulse Generator Model Sophia XT EVAN [id number] CV DEVICE CHECK Implantable Pulse Generator Serial Number [id number] CV DEVICE CHECK Implantable Pulse Generator Implant Date 20240504 CV DEVICE CHECK Battery Remaining Longevity 140.0 CV DEVICE CHECK Battery Voltage 3.160 CV D EVICE CHECK Battery RELATIONS SPECIALIST Trigger 2.625 CV DEVICE CHECK Battery Status Middle of Service CV DEVICE CHECK Rommel Statistic RA Percent Paced 18.32 CV DEVICE CHECK Rommel Statistic RV Percent Paced 45.19 CV DEVICE CHECK Atrial Tachy Statistic AT/AF [place] Percent 0.00 CV DEVICE CHECK Lead Channel [...] noted Cristy PAUL CV IMPLANTABLE CARDIAC DEVICE MT OCEDURES Final Result from Last 3 Months Insurance [place]ICA[place] - [place] A[place] MEDICARE ADVANTAGE Care Teams Finger Grip Machine Operator Relationship Specialty Start Date End Date Tamia Arnold MD PCP - General 04/11/24
[2024-10-09 13:37] LABS: MANUAL DIFF FLAG NO
[2024-10-09 13:39] LABS: Basophils Percent Auto 0.6 % (0-2); Eosinophils Absolute Auto 0.2 X10*3/uL (0.0-0.4); Eosinophils Percent Auto 2.4 % (0-4); Hematocrit 41.9 % (42.0-52.0); Hemoglobin 13.9 g/dl (14.0-18.0); Imm Gran Abs Auto 0.02 X10*3/uL (0.00-0.03); Imm Gran Pct Auto 0.3 % (0.0-0.4); Lymphocytes Absolute Auto 1.2 X10*3/uL (1.2-4.9); Lymphocytes Percent Auto 17.3 % (20-40); Mean Corpuscular HGB Conc 33.2 g/dl (31.0-36.0); Mean Corpuscular Hemoglobin 30.5 pg (27.0-33.0); Mean Corpuscular Volume 91.9 fL (80.0-98.0); Mean Platelet Volume 10.3 fL (9.4-12.4); Monocytes Absolute Auto 0.7 X10*3/uL (0.1-1.2); Monocytes Percent Auto 10.2 % (2-11); Neutrophils Absolute Auto 4.9 x10*3/uL (2.0-8.3); Neutrophils Percent Auto 69.2 % (45-73); Platelet Count 269 X10*3/uL (160-400); Red Blood Count 4.56 X10*6/uL (4.60-5.80); Red Cell Distribution Width 13.2 % (11.0-16.0)
[2024-10-09 13:51] LABS: Alanine Aminotransferase 24 U/L (0-40); Albumin Level 4.2 g/dL (3.5-5.0); Alkaline Phosphatase 120 U/L (39-117); Anion Gap 11 (12-20); Aspartate Amino Transferase 23 U/L (5-37); Bilirubin Total 0.4 mg/dL (0.0-1.0); Blood Urea Nitrogen 13 mg/dL (9-16); Calcium 9.3 mg/dL (8.4-10.2); Carbon Dioxide 29 mmol/L (22-29); Chloride 103 mmol/L (96-108); Cholesterol 172 mg/dL (<200); Estimated Glomerular Filt Rate > 60; Glucose Random 91 mg/dL (60-115); HDL Cholesterol 49 mg/dL (>40); LDL Cholesterol Calculated 98 mg/dL (<100); Potassium 3.9 mmol/L (3.3-5.1); Sodium 139 mmol/L (135-145); Total Protein 7.3 g/dL (6.5-8.0); Triglycerides 129 mg/dL (<150)
[2024-10-09 13:55] LABS: Estimated Average Glucose 108 mg/dL; Hemoglobin A1C 126.9768 umol/L; Hemoglobin A1c % 5.4 % (<6.0); Total Hemoglobin (HGBA1C) 3620.8429 umol/L
== END 2024-10-09 11:20 | disposition home or self-care (01) ==
LOC: HO.WFDLDS 11:19
PROVIDERS: Visit Provider Internal Medicine
DX: Z00.00 Encounter for general adult medical examination without abnormal findings (principal); E11.65 Type 2 diabetes mellitus with hyperglycemia; C43.61 Malignant melanoma of right upper limb, including shoulder; I10 Essential (primary) hypertension; Z79.4 Long term (current) use of insulin
CPT/HCPCS: 36415; 80053; 80061; 83036; 85025; 96127; 99212

== ENCOUNTER 2025-03-26 10:04 | Outpatient (AMB) | payer MEDICARE, SELFPAY ==
--- NOTE | 2025-03-26 10:18 | MHC.PC.OV ---
Vital Signs 03/26/25 10:24 Height 6 ft 3 in Weight 220 lb 8 oz BMI 27.6 BP 138/60 Blood Pressure Location Lt brachial Position Sitting Respiration 14 Pulse 72 Pulse Source Pulse Oximeter Pulse Oximetry (%) 99 Oxygen Delivery Method Room Air Intake Visit Reasons: bp check-6 month/weak/anemic? Intake Note: Follow up. Went to eye doctor and does not have diabetic neuropathy X Ray Examiner Of Aircraft Required: No Allergies No Known Allergies Allergy (Verified 10/09/24 10:40) Tobacco use date assessed: 03/26/25 Dental Screening Dental Screen Date: 10/09/24 HPI HPI Comments History of Present Illness Details The patient is an 84 year old male with a past medical history of diabetes, hypertension, BCC, allergies presenting for follow up Diabetes: A1C controlled on metformin. Previously on lantus 10 unitsand metformin 2000mg daily. Diagnosed 2023. Reviewed glucometer-checking once daily with fasting glucose 70-130. He was recently hospitalized at [facility] March 13 to March 14. Presented with malaise, abdominal discomfort, polyuria. A1C elevated. Prior A1C last year in pre-diabetic range. He was started on short and long acting insulin-lantus 10units daily and aspart 1-5 units with meals. A1C last visit 11.7%. He has not been taking novolog since starting metformin. He continues lantus 10 units. Fasting glucose x14 days 104. No lows Diabetic eye exam 2023 History of BCC, melanoma. Follows with dermatology-JUAN. He is UTD CV: Blood pressure has been well controlled on amlodipine Dr Avitia for eye exams 3/3 Memory HRA reviewed Care team reviewed Medications reconciled Negative fall PHQ9 negative ROS see HPI PHYSICAL EXAM: GENERAL: Alert and oriented x 3. NAD EYES: EOMI. Anicteric. HENT: Moist mucous membranes. No scleral icterus. No cervical lymphadenopathy. LUNGS: Clear to auscultation bilaterally. CARDIOVASCULAR: Regular rate and rhythm. No murmur. No JVD. ABDOMEN: Soft, non-tender +bs EXTREMITIES: No edema. Non-tender. SKIN: No rashes or lesions. Warm. NEUROLOGIC: No focal neurological deficits. CN II-XII grossly intact PSYCHIATRIC: Cooperative. Appropriate mood and affect [facility] Medical History Sebaceous cyst Basal cell carcinoma (BCC) of face Obesity, Class I, BMI 30.0-34.9 (see actual BMI) HTN (hypertension) Hx of basal cell carcinoma Allergies Surgical History Hx of carcinomas Hx of sebaceous cyst Hx of colonoscopy Family History Father No problems noted. Mother Pacemaker Brother HTN (hypertension) Son Thyroid cancer Daughter Thyroid cancer Diabetes Sister Memory deficit Social History (Updated 03/27/25 @ 15:55 by Maylin Richard CMA) Housing: Apartment Alcohol intake: current Alcohol intake frequency: does not drink Patient Tobacco Use Status: Never used Tobacco e-Cigarette/Vaping Use: Never Used Use of substances other than those prescribed or required for medical reasons: No service: No Current occupational status: retired Cognitive needs: No Hearing needs: No Vision needs: Yes (glasses) Questionnaire PHQ-9 Over the last 2 weeks, how often have you been bothered by any of the following problems? 1. Little interest or pleasure in doing things: not at all 2. Feeling down, depressed, or hopeless: not at all 3. Trouble falling or staying asleep, or sleeping too much: more than half the days 4. Feeling tired or having little energy: several days 5. Poor appetite or overeating: not at all 6. Feeling bad about yourself - or that you are a failure or have let yourself or your family down: not at all 7. Trouble concentrating on things, such as reading the newspaper or watching television: not at all 8. Moving or speaking so slowly that other people could have noticed. Or the opposite - being so fidgety or restless that you have been moving around a lot more than usual: not at all 9. Thoughts that you would be better off or of hurting yourself in some way: not at all Total score: 3 Depression Screening Interpretation: Negative Depression Screening Done: Yes 67050 - PHQ-9 Billing: Yes Source: Developed by Drs. Gideon Aleman, Denisse Ozuna, Evert Mcgregor and colleagues, with an educational sujit from [employer]. Thrive Questionnaire Date Thrive assessed: 03/26/25 I am a: Patient What is your living situation today?: I have a steady place to live Within the past 12 months, did the food you bought not last and you didn't have the money to get more?: Never true Within the past 12 months, did you worry whether your food would run out before you got money to buy more?: Never true Do you have trouble paying for medicines?: No Do you have trouble getting transportation to medical appointments?: No Do you have trouble paying your heating and electricity bill?: No Do you have trouble taking care of your child, family member or friend?: No Do you have trouble with day-to-day activities such as bathing, preparing meals, shopping, managing finances, etc.?: No Are you currently unemployed and looking for a job?: No Are you interested in more education?: No Please select the resources that you would like help with: None Currently or been in a relationship where the following occur: No concerns reported THRIVE Score: 0 AUDIT C Alcohol Use Questionnaire (AUDIT-C) 1. How often do you have a drink containing alcohol?: 2-3 times a week 2. How many drinks containing alcohol do you have on a typical day when you are drinking?: 1 or 2 3. How often do you have six or more drinks on one occasion?: Never Total Score: 3 FIGUEROA-7 AMB Questionnaire FIGUEROA-7 Date FIGUEROA - 7 assessed: 03/26/25 Feeling nervous, anxious, or on edge: 0 = Not at all Not being able to stop or control worryin = Not at all Worrying too much about different things: 0 = Not at all Trouble relaxin = Not at all Being so restless that it is hard to sit still: 0 = Not at all Becoming easily annoyed or irritable: 0 = Not at all Feeling afraid as if something awful might happen: 0 = Not at all Total FIGUEROA-7 score (0-4 normal; 5-9 mild; 10-14 moderate; 15-21 severe): 0 Source: Developed by Drs. Gideon Aleman, Denisse Ozuna, Evert Mcgregor and colleagues, with an educational sujit from [employer]. FIGUEROA-7 Assessment Billing FIGUEROA-7 Assessment Tool: FIGUEROA-7 Assessment 21742 Physical exam (Primary Care) Vital Signs: Last Vital Signs Pulse 72 03/26/25 10:24 Resp 14 03/26/25 10:24 BP 138/60 03/26/25 10:24 Pulse Ox 99 03/26/25 10:24 Oxygen Delivery Method Room Air 03/26/25 10:24 BMI result Body Mass Index 27.6 Tobacco/Smoking Status: Tobacco use Status Tobacco use date assessed 03/26/25 03/26/25 10:30 Patient Tobacco Use Status Never used Tobacco 03/26/25 10:20 e-Cigarette/Vaping Use Never Used 03/26/25 10:20 PHQ-9: PHQ-9 Score PHQ-9: Total score 3 03/27/25 15:55 Depression Screening Interpretation: Negative Thrive Assessment: Date of Thrive Assessment Date Thrive assessed 03/27/25 03/27/25 15:55 Currently or been in a relationship where the following occur: No concerns reported Coding Additional Codes FIGUEROA-7 Assessment Billing - FIGUEROA-7 Assessment Tool: FIGUEROA-7 Assessment 95453 ([id number]) PHQ-9 - 50910 - PHQ-9 Billing: Yes ([id number]) Assessment & Plan Assessment & Plan Orders: Orders UA CC w/rflx Micro + Cult 03/26/25 E11.9 - Type 2 diabetes mellitus without complications, R53.83 - Other fatigue IRON PROFILE 03/26/25 E11.9 - Type 2 diabetes mellitus without complications, R53.83 - Other fatigue Prostate Specific Antigen 03/26/25 E11.9 - Type 2 diabetes mellitus without complications, R53.83 - Other fatigue Complete Blood Count Auto Diff 03/26/25 E11.9 - Type 2 diabetes mellitus without complications, R53.83 - Other fatigue Vitamin B12 and Folate 03/26/25 E11.9 - Type 2 diabetes mellitus without complications, R53.83 - Other fatigue Hemoglobin A1c 03/26/25 E11.9 - Type 2 diabetes mellitus without complications, R53.83 - Other fatigue AMB Hemoglobin A1c 03/26/25 E11.9 - Type 2 diabetes mellitus without complications Medications: New tamsulosin (Flomax) 0.4 mg PO DAILY 90 caps 1RF Refilled clotrimazole-betamethasone 1-0.05 % 1 appl topical BID 2 weeks 45 grams 0RF Discontinued Lantus Solostar U-100 Insulin (insulin glargine) Discontinued Reason: Doctor's Order 10 units (0.1 mL) subcut BEDTIME 15 mL 3RF NS fluticasone propionate 50 mcg/actuation administer into each nostril Discontinued Reason: Doctor's Order 2 sprays intranasal DAILY 16 grams 3RF
[2025-03-26 10:24] VITALS: BP 138/60; PULSE 72; RESP 14; O2SAT 99; BMI 27.6
--- OUTSIDE RECORDS SUMMARY | 2025-03-26 10:43 | XMS_ITS | Clinical Summary ---
Author Organization [facility] [employer] Address [address] [place] [address] Phone Care Team Providers Care Program Director Scouting Name Role Phone aTmia Arnold MD Primary Care Provider [phone] Allergies No known active allergies Medications metFORMIN [...] patient was also evaluated in person by child support officer (Dr. Hook). Dr. Hook discussed with the patient the possibility of a pacemaker placement. The patient is in agreement to proceed with a pacemaker placement. Dr. Hook will schedule the patient for pacemaker placement to be as soon as possible. In the meantime, we will continue the patient's current ambulatory monitor technician. Assessment & Plan (09/05/2024 4:17 PM EST): [...] a pacemaker placement in May 2024 at [facility]. Will arrange for the device clinic to download the patient's cardiac device data to make sure that his pacemaker is functioning normally. Diabetes mellitus (CMS/HCC V24, CMS/HCC V28) ERASMO (obstructive sleep apnea) 04/11/2024 Overview (07/14/2024): Last Assessment & Plan: The patient has a history of sleep apnea. However, he is not currentl yon CPAP therapy. Discussed importance of sleep apnea treatment particularly given episodes of AV block at night. Will order a sleep study for reevaluation. Encounters Date Type Department Care Team Description 02/12/2025 8:30 PM EDT Ancillary Procedure [facility] [address] [facility] [address] [place] [phone] from Last 3 Months Social History Tobacco [...] Care Team (Late st Contact Info) Description 06/05/2025 1:00 PM EDT Ancillary Procedure [facility] [address] [facility] [address] [place] [phone] Health Maintenance Due Date Last Done Comments Diabetes: Annual GFR (Glomerular Filtration Rate) 1940 Diabetes: Annual Foot Exam 01/14/1950 Diabetes: Annual Retina Eye Exam 01/14/1950 DTaP,Tdap,and Td Vaccines (1 - Tdap) 01/14/1959 Pneumococcal Vaccine: 50+ Years (1 of 2 - PCV) 01/14/1959 RSV Immunization Adult Patients (1 - 1-dose 75+ series) 01/14/2015 Cholesterol Screening (Lipid Panel) 07/21/2022 Falls Risk Assessment 07/21/2022 Medicare Annual Wellness Visit 07/21/2022 Social Influencers of Health Screening 07/21/2022 Zoster Vaccines (2 of 2) 07/21/2023 05/26/2023 Diabetes: Annual Urine Albumin-Creatinine Ratio (uACR) 05/31/2024 Diabetes: Blood Sugar Control Test (HGBA1C) 05/31/2024 Hypertension/CHF/CAD Annual BMP Blood Test 06/05/2024 Depression Screening 08/23/2024 COVID-19 Vaccine ( season) 2024 06/15/2024, 06/08/2022, 06/11/2021, Additional history exists Influenza Vaccine (#1) 2025 , 05/26/2023, 05/21/2022, Additional history exists HIB Vaccines Aged [...] age to complete this topic Meningococcal B Vaccine Aged Out No l onger eligible based on patient's age to complete this topic RSV Immunization Patients Under 20 months Aged Out No longer eligible based on patient's age to complete this topic Varicella Vaccines Aged Out No longer eligible based on patient's age to complete this topic Medical Devices Implanted Type Area Administrative Support Assistant Device Identifier Shelf Expiration Date Model / Serial / Lot Medt-Card Kalpana Xt Dr Gordon [id number] Implanted:07/2024 (Quantity not on file) Cardiac Pacemaker [employer] - CARDIAC RHYTH-CRDM KALPANA XT DR GORDON [id number] / [id number] / Procedures Procedure Name Priority Date/Time Associated Diagnosis Comments CARDIAC DEVICE CHECK- REMOTE- MURJ Routine 02/12/2025 8:29 PM EDT from Last 3 Months Results * Cardiac device check - Remote- MURJ (02/12/2025 8:29 PM EDT) Date Time Interrogation Session [id number] CV DEVICE CHECK Type Interrogation Session Remote CV DEVICE CHECK Implantable Pulse Generator Administrative Support Assistant MDT CV DEVICE CHECK Implantable Pulse Generator Type IPG CV DEVICE CHECK Implantable Pulse Generator Model Kalpana XT DR MRI [id number] CV DEVICE CHECK Implantable Pulse Generator Serial Number [id number] CV DEVICE CHECK Implantable Pulse Generator Implant Date 20240504 CV DEVICE CHECK Battery Remaining Longevity 154.0 CV DEVICE CHECK Battery Voltage 3.090 CV D EVICE CHECK Battery WASTE MACHINE OPERATOR Trigger 2.625 CV DEVICE CHECK Battery Status Middle of Service CV DEVICE CHECK Rommel Statistic RA Percent Paced 18.30 CV DEVICE CHECK Rommel Statistic RV Percent Paced 56.98 CV DEVICE CHECK Atrial Tachy Statistic AT/AF [place] Percent 0.00 CV DEVICE CHECK Lead Channel Sensing Intrinsic Amplitude 2.750 CV DEVICE CHECK Lead Channel Setting Sensing Sensitivity 0.30 CV DEVICE CHECK Lead Channel Impedance Value 437 CV DEVICE CHECK Lead Channel Pacing Threshold Amplitude 0.625 CV DEVICE CHECK Lead Channel Pacing Threshold Pulse Width 0.4 CV DEVICE CHECK Lead Channel RA Pacing Threshold Date 2025-02-01 CV DEVICE CHECK Lead Channel Setting Pacing Amplitude 1.500 CV DEVICE CHECK Lead Channel Setting Pacing Pulse Width 0.4 CV DEVICE CHECK Lead Channel Sensing Intrinsic Amplitude 6.625 CV DEVICE CHECK Lead Channel Setting Sensing Sensitivity 0.90 CV DEVICE CHECK Lead Channel Impedance Value 437 CV DEVICE CHECK Lead Channel Pacing Threshold Amplitude 0.875 CV DEVICE CHECK Lead Channel Pacing Threshold Pulse Width 0.4 CV DEVICE CHECK Lead Channel RV Pacing Threshold Date 2025-02-01 CV DEVICE CHECK Lead Channel Setting Pacing Amplitude 2.000 CV DEVICE CHECK Lead Channel Setting Pacing [...] 6 CV DEVICE CHECK Date of Service 2025-02-12 CV DEVICE CHECK Anatomical Region Laterality Modality Device Interroga tion 02/01/2025 2:18 AM EDT Impressions 02/12/2025 10:50 AM EDT Normal Remote: With Events * Normal Device Function * Events or Alerts: 3 * 3 VT episodes longest 8 beats * Battery: [place], 12.83 yrs * Sensing, impedance and thresholds reviewed * Programmed parameters reviewed * Presenting rhythm reviewed * Heart Rate Histograms reviewed Narrative Procedure Note Evette Hook MD - 02/12/2025 IMPRESSION: Normal Remote: With Events * Normal Device Function * Events or Alerts: 3 * 3 VT episodes longest 8 beats * Battery: [place], 12.83 yrs * Sensing, impedance and thresholds reviewed * Programmed parameters reviewed * Presenting rhythm reviewed * Heart Rate Histograms reviewed Evette Hook MD CV IMPLANTABLE CARDIAC DEV ICE PROCEDURES Final Result from Last 3 Months Insurance MED[place] - [place] AET[place] MEDICARE ADVANTAGE Care Teams Program Director Scouting Relationship Specialty Start Date End Date Tamia Arnold MD PCP - General 04/11/24
== END 2025-03-26 10:46 | disposition home or self-care (01) ==
LOC: HO.HMCFM 10:05
PROVIDERS: PCP Internal Medicine; Visit Provider Internal Medicine
DX: E11.9 Type 2 diabetes mellitus without complications (principal)

== ENCOUNTER → 2025-03-26 10:04 | Outpatient (BNVA) | payer MEDICARE, SELFPAY | PROVIDERS: PCP Internal Medicine; Visit Provider Internal Medicine | DX: Z13.31 Encounter for screening for depression (principal); Z13.30 Encounter for screening examination for mental health and behavioral disorders, unspecified; I10 Essential (primary) hypertension; C44.310 Basal cell carcinoma of skin of unspecified parts of face; R53.83 Other fatigue; E11.9 Type 2 diabetes mellitus without complications | CPT/HCPCS: 83036; 96127; 99212 ==

== ENCOUNTER 2025-03-26 10:51 | Outpatient (REF) | payer MEDICARE, SELFPAY ==
[2025-03-26 13:59] LABS: MANUAL DIFF FLAG NO
[2025-03-26 14:11] LABS: Hematocrit 40.8 % (42.0-52.0); Hemoglobin 13.4 g/dl (14.0-18.0); Imm Gran Abs Auto 0.01 X10*3/uL (0.00-0.03); Imm Gran Pct Auto 0.2 % (0.0-0.4); Lymphocytes Absolute Auto 1.0 X10*3/uL (1.2-4.9); Mean Corpuscular HGB Conc 32.8 g/dl (31.0-36.0); Mean Corpuscular Hemoglobin 29.9 pg (27.0-33.0); Mean Corpuscular Volume 91.1 fL (80.0-98.0); NRBC Abs Auto 0.000 X10*3/uL (0.0-0.012); NRBC Pct Auto 0.0 /100WBC (0.0-0.2); Platelet Count 245 X10*3/uL (160-400); Red Blood Count 4.48 X10*6/uL (4.60-5.80); White Blood Count 5.6 X10*3/uL (4.8-10.8)
[2025-03-26 14:18] LABS: Appearance Urine Clear; Glucose Urine UA Negative (Negative); PH 7.0 (5.0-9.0); Specific Gravity - Urine 1.010 (1.005-1.025)
[2025-03-26 14:27] LABS: Alanine Aminotransferase 14 U/L (0-40); Albumin Level 4.3 g/dL (3.5-5.0); Alkaline Phosphatase 115 U/L (39-117); Anion Gap 13 (12-20); Aspartate Amino Transferase 29 U/L (5-37); Blood Urea Nitrogen 13 mg/dL (9-16); Calcium 9.2 mg/dL (8.4-10.2); Carbon Dioxide 31 mmol/L (22-29); Chloride 102 mmol/L (96-108); Cholesterol 169 mg/dL (<200); Estimated Glomerular Filt Rate > 60; HDL Cholesterol 47 mg/dL (>40); Iron 100 mcg/dL (45-160); Percent Iron Saturation 34 % (15-50); Potassium 3.6 mmol/L (3.3-5.1); Sodium 142 mmol/L (135-145); Total Iron Binding Capacity 296 mcg/dL (228-428); Total Protein 6.9 g/dL (6.5-8.0); Triglycerides 140 mg/dL (<150); Unsaturated Iron Binding 196 ug/dL
[2025-03-26 14:35] LABS: Hemoglobin A1C 120.3501 umol/L; Total Hemoglobin (HGBA1C) 3517.1728 umol/L
[2025-03-26 14:56] LABS: Folate 13.4 ng/mL (> or = 4.0); Prostate Specific Antigen 1.52 ng/mL (<0.05-4.0); Vitamin B12 356 pg/mL (200-900)
== END 2025-03-26 10:52 | disposition home or self-care (01) ==
LOC: HO.WFDLDS 10:51
PROVIDERS: Visit Provider Internal Medicine
DX: Z12.5 Encounter for screening for malignant neoplasm of prostate (principal); E11.65 Type 2 diabetes mellitus with hyperglycemia; I10 Essential (primary) hypertension; C43.9 Malignant melanoma of skin, unspecified; R53.83 Other fatigue; Z79.4 Long term (current) use of insulin
CPT/HCPCS: 36415; 80053; 80061; 81003; 82043; 82570; 82607; 82746; 83036; 83540; 84153; 85025

== ENCOUNTER 2025-06-29 10:22 | Outpatient (AMB) | payer MEDICARE, SELFPAY ==
--- NOTE | 2025-06-29 10:41 | MHC.PC.OV ---
Vital Signs 06/29/25 10:43 Height 6 ft 3 in Weight 226 lb 8 oz BMI 28.3 BP 138/62 Blood Pressure Location Rt brachial Position Sitting Respiration 16 Pulse 72 Pulse Source Pulse Oximeter Pulse Oximetry (%) 97 Oxygen Delivery Method Room Air Intake Visit Reasons: DM follow up Intake Note: Diabetes follow up [employer] Required: No Allergies No Known Allergies Allergy (Verified 06/29/25 10:45) Tobacco use date assessed: 06/29/25 Dental Screening Dental Screen Date: 10/09/24 HPI HPI Comments History of Present Illness Details The patient is an 85 year old male with a past medical history of diabetes, hypertension, BCC, allergies presenting for follow up Diabetes: A1C controlled on metformin. 5.6% from 5.4%. Previously on lantus 10 units. Diagnosed 2023. Using traditional glucometer, checking once daily. He will start checking 2-3 times per week. He was recently hospitalized at [facility] March 13 to March 14. Presented with malaise, abdominal discomfort, polyuria. A1C elevated. Prior A1C last year in pre-diabetic range. He was started on short and long acting insulin-lantus 10units daily and aspart 1-5 units with meals. A1C last visit 11.7%. He has not been taking novolog since starting metformin. He continues lantus 10 units. Fasting glucose x14 days 104. No lows Diabetic eye exam UTD History of BCC, melanoma. [place] with dermatology-JUAN and Dr [place] [facility] [place] scan at [facility]. Has not heard about the results CV: Blood pressure has been well controlled on amlodipine. Denies chest pain, dyspnea Dr Avitia for eye exams ROS see HPI PHYSICAL EXAM: GENERAL: Alert and oriented x 3. NAD EYES: EOMI. Anicteric. HENT: Moist mucous membranes. No scleral icterus. No cervical lymphadenopathy. LUNGS: Clear to auscultation bilaterally. CARDIOVASCULAR: Regular rate and rhythm. No murmur. No JVD. ABDOMEN: Soft, non-tender +bs EXTREMITIES: No edema. Non-tender. SKIN: No rashes or lesions. Warm. NEUROLOGIC: No focal neurological deficits. CN II-XII grossly intact PSYCHIATRIC: Cooperative. Appropriate mood and affect [facility] Medical History (Updated 06/29/25 @ 11:12 by Tamia Arnold MD) Insulin use (long-term) in type 2 diabetes Sebaceous cyst Basal cell carcinoma (BCC) of face Obesity, Class I, BMI 30.0-34.9 (see actual BMI) HTN (hypertension) Hx of basal cell carcinoma Allergies Surgical History Hx of carcinomas Hx of sebaceous cyst Hx of colonoscopy Family History Father No problems noted. Mother Pacemaker Brother HTN (hypertension) Son Thyroid cancer Daughter Thyroid cancer Diabetes Sister Memory deficit Social History (Updated 03/27/25 @ 15:55 by Maylin Richard CMA) Housing: Apartment Alcohol intake: current Alcohol intake frequency: does not drink Patient Tobacco Use Status: Never used Tobacco e-Cigarette/Vaping Use: Never Used service: No Current occupational status: retired Cognitive needs: No Hearing needs: No Vision needs: Yes (glasses) Questionnaire Thrive Questionnaire Date Thrive assessed: 03/26/25 I am a: Patient What is your living situation today?: I have a steady place to live Within the past 12 months, did the food you bought not last and you didn't have the money to get more?: Never true Within the past 12 months, did you worry whether your food would run out before you got money to buy more?: Never true Do you have trouble paying for medicines?: No Do you have trouble getting transportation to medical appointments?: No Do you have trouble paying your heating and electricity bill?: No Do you have trouble taking care of your child, family member or friend?: No Do you have trouble with day-to-day activities such as bathing, preparing meals, shopping, managing finances, etc.?: No Are you currently unemployed and looking for a job?: No Are you interested in more education?: No Please select the resources that you would like help with: None Currently or been in a relationship where the following occur: No concerns reported THRIVE Score: 0 FIGUEROA-7 AMB Questionnaire FIGUEROA-7 Date FIGUEROA - 7 assessed: 03/26/25 Source: Developed by Drs. Gideon Aleman, Denisse Ozuna, Evert Mcgregor and colleagues, with an educational sujit from [employer]. Physical exam (Primary Care) Vital Signs: Last Vital Signs Pulse 72 06/29/25 10:43 Resp 16 06/29/25 10:43 BP 138/62 06/29/25 10:43 Pulse Ox 97 06/29/25 10:43 Oxygen Delivery Method Room Air 06/29/25 10:43 BMI result Body Mass Index 28.3 Tobacco/Smoking Status: Tobacco use Status Tobacco use date assessed 06/29/25 06/29/25 10:45 Patient Tobacco Use Status Never used Tobacco 06/29/25 10:41 e-Cigarette/Vaping Use Never Used 06/29/25 10:41 Thrive Assessment: Date of Thrive Assessment Date Thrive assessed 03/26/25 06/29/25 10:41 Currently or been in a relationship where the following occur: No concerns reported Coding Level of Care Code Est Pt Level 4 (25169) Diagnoses Type 2 diabetes mellitus without complication, without long-term current use of insulin E11.9 Diabetes mellitus buttermaker insulin use: without fdc use Diabetes mellitus complication status: without complication Primary hypertension I10 Hypertension type: primary hypertension Basal cell carcinoma (BCC) of face C44.310 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 C43.61 Melanoma location: upper extremity including shoulder Laterality: right Assessment & Plan Assessment & Plan (1) Type 2 diabetes mellitus: Code(s): E11.9 - Type 2 diabetes mellitus without complications Category: Medical Qualifiers: Diabetes mellitus buttermaker insulin use: without buttermaker use Diabetes mellitus complication status: without complication Qualified Code(s): E11.9 - Type 2 diabetes mellitus without complications (2) HTN (hypertension): Code(s): I10 - Essential (primary) hypertension Category: Medical Qualifiers: Hypertension type: primary hypertension Qualified Code(s): I10 - Essential (primary) hypertension (3) Basal cell carcinoma (BCC) of face: Code(s): C44.310 - Basal cell carcinoma of skin of unspecified parts of face Category: Medical (4) Melanoma: Code(s): C43.9 - Malignant melanoma of skin, unspecified Category: Medical Qualifiers: Melanoma location: upper extremity including shoulder Laterality: right Qualified Code(s): C43.61 - Malignant melanoma of right upper limb, including shoulder Plan Type 2 diabetes at goal. Continue current medications. No hypoglycemia CV-blood pressure is well controlled on current medications BPH-stable on flomax BCC, melanoma-continue onc, derm follow up Medications: Refilled tamsulosin (Flomax) 0.4 mg PO DAILY 90 caps 3RF alcohol swabs (BD Alcohol Swabs) 1 pad topical TID 270 ea 3RF 90 days
[2025-06-29 10:43] VITALS: BP 138/62; PULSE 72; RESP 16; O2SAT 97; BMI 28.3
--- OUTSIDE RECORDS SUMMARY | 2025-06-29 12:13 | XMS_ITS | Clinical Summary ---
Author Organization [facility] [email or web address] [facility] Address [address] [place] [address] Phone Care Team Providers Care Casting Room Operator Name Role Phone Tamia Arnold MD Primary Care Provider [phone] Allergies No known active allergies Medications metFORMIN [...] patient was also evaluated in person by bench assembly inspector (Dr. Hook). Dr. Hook discussed with the patient the possibility of a pacemaker placement. The patient is in agreement to proceed with a pacemaker placement. Dr. Hook will schedule the patient for pacemaker placement to be as soon as possible. In the meantime, we will continue the patient's current ambulatory machine tender. Assessment & Plan (09/05/2024 4:17 PM EST): [...] a pacemaker placement in May 2024 at [facility]. Will arrange for the device clinic to download the patient's cardiac device data to make sure that his pacemaker is functioning normally. Diabetes mellitus ([facility] V24, [facility] V28) ERASMO (obstructive sleep apnea) 04/11/2024 Overview (07/14/2024): Last Assessment & Plan: The patient has a history of sleep apnea. However, he is not currentl yon CPAP therapy. Discussed importance of sleep apnea treatment particularly given episodes of AV block at night. Will order a sleep study for reevaluation. Encounters Date Type Department Care Team Description 06/05/2025 1:00 PM EDT Ancillary Procedure [facility] - [address] [place] [address] Encounter for adjustment or management of cardiac device 05/08/2025 12:50 PM EDT Ancillary Procedure [facility] - [address] [place] [phone] from Last 3 Months Social History Tobacco [...] Care Team (Late st Contact Info) Description 09/17/2025 10:40 AM EST Office Visit [facility] Cardiology [facility] [address] [place] [id number] Manju Mcfarland NP [address] [place] [address] [address] [place] [phone] 06/05/2026 10:30 AM EDT Ancillary Procedure [facility] - [address] [place] [phone] Health Maintenance Due Date Last Done Comments [...] Depression Screening 08/23/2024 COVID-19 Vaccine ( season) 2025 06/15/2024, 06/08/2022, 06/11/2021, Additional history exists Influenza Vaccine Completed 05/15/2025, , 05/26/2023, Additional history exists HIB Vaccines Aged Out [...] this topic Medical Devices Implanted Type Area [employer]ker [employer] Device Identifier Shelf Expiration Date Model / Serial / Lot Medt-Card [place] Xt Dr Mri [id number] Implanted:07/2024 (Quantity not on file) Cardiac Pacemaker [employer] - CARDIAC RHYTH-CRDM KALPANA XT DR MRI [id number] / [id number] / Medt-Card Kalpana Xt Dr Willis [id number] Implanted:07/2024 (Quantity not on file) Cardiac Pacemaker [employer] - CARDIAC RHYTH-CRDM KALPANA XT DR MRI / [id number] / Procedures Procedure Name Priority Date/Time Associated Diagnosis Comments CARDIAC DEVICE CHECK- IN CLINIC- MURJ Routine 06/05/2025 1:27 PM EDT Encounter for adjustment or management of cardiac device CARDIAC DEVICE CHECK- REMOTE- MURJ Routine 05/08/2025 12:47 PM EDT from Last 3 Months Results * CARDIAC DEVICE CHECK- IN CLINIC- MURJ (06/05/2025 1:27 PM EDT) Date Time Interrogation Session [id number] CV DEVICE CHECK Implantable Pulse Generator [employer] MDT CV DEVICE CHECK Implantable Pulse Generator Type IPG CV DEVICE CHECK Implantable Pulse Generator Model [place] XT DR GORDON CV DEVICE CHECK Implantable Pulse Generator Serial Number [id number] CV DEVICE CHECK Implantable Pulse Generator Implant Date 20240504 CV DEVICE CHECK Battery Status Middle of Service CV DEVICE CHECK Rommel Statistic RA Percent Paced 19.90 CV DEVICE CHECK Rommel Statistic RV Percent Paced 57.70 CV DEVICE CHECK Atrial Tachy Statistic AT/AF [place] Percent 0.10 CV DEVICE CHECK Lead Channel Sensing Intrinsic Amplitude 3.100 CV DEVICE CHECK Lead Channel Setting Sensing Sensitivity 0.30 CV DEVICE CHECK Lead Channel Impedance Value 456 CV DEVICE CHECK Lead Channel Pacing Threshold Amplitude 1.000 CV DEVICE CHECK Lead Channel Pacing Threshold Pulse Width 0.4 CV DEVICE CHECK Lead Channel RA Pacing Threshold Date 2025-06-05 CV DEVICE CHECK Lead Channel Setting Pacing Amplitude 2.000 CV DEVICE CHECK Lead Channel Setting Pacing Pulse Width 0.4 CV DEVICE CHECK Lead Channel Sensing Intrinsic Amplitude 5.500 CV DEVICE CHECK Lead Channel Setting Sensing Sensitivity 0.90 CV DEVICE CHECK Lead Channel Impedance Value 456 CV DEVICE CHECK Lead Channel Pacing Threshold Amplitude 1.000 CV DEVICE CHECK Lead Channel Pacing Threshold Pulse Width 0.4 CV DEVICE CHECK Lead Channel RV Pacing Threshold Date 2025-06-05 CV DEVICE CHECK Lead Channel Setting Pacing [...] Maximum Sensor Rate 130 CV DEVICE CHECK Zone Setting Type Category AT/AF CV DEVICE CHECK Therapies All Rx Off CV DEVICE CHECK Zone Setting Status Monitor CV DEVICE CHECK Zone ID 2 CV DEVICE CHECK Zone Setting Type Category VT CV DEVICE CHECK Zone Setting Status Monitor CV DEVICE CHECK Zone ID 5 CV DEVICE CHECK Date of Service 2026-05-29 CV DEVICE CHECK Anatomical Region Laterality Modality Device Interroga tion 06/05/2025 Impressions 06/08/2025 1:53 AM EDT Normal In-Office: No Events * Normal Device Function * Alerts or events: None noted since last remote * Battery: MOS, 12.2 years * Sensing, impedance and thresholds reviewed and tested * Presenting Rhythm: - COMMERCIAL ROOFING ESTIMATOR 70's * Underlying Rhythm: - VS 70's (longer AV delay w/o LBBB pacing) * Heart Rate Histograms reviewed * Pacing and Detection Parameters were evaluated Narrative Procedure Note Evette Hook MD - 06/08/2025 IMPRESSION: Normal In-Office: No Events * Normal Device Function * Alerts or events: None noted since last remote * Battery: MOS, 12.2 years * Sensing, impedance and thresholds reviewed and tested * Presenting Rhythm: - COMMERCIAL ROOFING ESTIMATOR 70's * Underlying Rhythm: - VS 70's (longer AV delay w/o LBBB pacing) * Heart Rate Histograms reviewed * Pacing and Detection Parameters were evaluated us Order Referral Cardiovascular CV IMPLANTABLE CAR DIAC DEVICE PROCEDURES Final Result * Cardiac device check - Remote- MURJ (05/08/2025 12:47 PM EDT) Date Time Interrogation Session [id number] CV DEVICE CHECK Type Interrogation Session Remote CV DEVICE CHECK Implantable Pulse Generator [employer] MDT CV DEVICE CHECK Implantable Pulse Generator Type IPG CV DEVICE CHECK Implantable Pulse Generator Model [place] XT DR MRI [id number] CV DEVICE CHECK Implantable Pulse Generator Serial Number [id number] CV DEVICE CHECK Implantable Pulse Generator Implant Date 20240504 CV DEVICE CHECK Battery Remaining Longevity 149.0 CV DEVICE CHECK Battery Voltage 3.050 CV D EVICE CHECK Battery CORRUGATED FASTENER DRIVER Trigger 2.625 CV DEVICE CHECK Battery Status Middle of Service CV DEVICE CHECK Rommel Statistic RA Percent Paced 22.98 CV DEVICE CHECK Rommel Statistic RV Percent Paced 66.16 CV DEVICE CHECK Atrial Tachy Statistic AT/AF [place] Percent 0.00 CV DEVICE CHECK Lead Channel Sensing Intrinsic Amplitude 3.000 CV DEVICE CHECK Lead Channel Setting Sensing Sensitivity 0.30 CV DEVICE CHECK Lead Channel Impedance Value 418 CV DEVICE CHECK Lead Channel Pacing Threshold Amplitude 0.875 CV DEVICE CHECK Lead Channel Pacing Threshold Pulse Width 0.4 CV DEVICE CHECK Lead Channel RA Pacing Threshold Date 2025-05-03 CV DEVICE CHECK Lead Channel Setting Pacing Amplitude 1.750 CV DEVICE CHECK Lead Channel Setting Pacing Pulse Width 0.4 CV DEVICE CHECK Lead Channel Sensing Intrinsic Amplitude 8.000 CV DEVICE CHECK Lead Channel Setting Sensing Sensitivity 0.90 CV DEVICE CHECK Lead Channel Impedance Value 437 CV DEVICE CHECK Lead Channel Pacing Threshold Amplitude 1.000 CV DEVICE CHECK Lead Channel Pacing Threshold Pulse Width 0.4 CV DEVICE CHECK Lead Channel RV Pacing Threshold Date 2025-05-03 CV DEVICE CHECK Lead Channel Setting Pacing [...] 6 CV DEVICE CHECK Date of Service 2025-05-14 CV DEVICE CHECK Anatomical Region Laterality Modality Device Interroga tion 05/03/2025 1:17 AM EDT Impressions 05/08/2025 12:43 PM EDT Normal Remote: With Events * Normal Device Function * Events or Alerts: 1 * 6 beat VT * Battery: OK, 12.42 yrs * Sensing, impedance and thresholds reviewed * Programmed parameters reviewed * Presenting rhythm reviewed * Heart Rate Histograms reviewed Narrative Procedure Note Evette Hook MD - 05/08/2025 IMPRESSION: Normal Remote: With Events * Normal Device Function * Events or Alerts: 1 * 6 beat VT * Battery: OK, 12.42 yrs * Sensing, impedance and thresholds reviewed * Programmed parameters reviewed * Presenting rhythm reviewed * Heart Rate Histograms reviewed us Evette Hook MD CV IMPLANTABLE CARDIAC DEV ICE PROCEDURES Final Result from Last 3 Months Insurance * Guarantor: Baltazar Saleh Account Type Relation to Patient Date of Phone Billing Address Personal/Family Self [address] [place] [address] MEDICA[place] - [place] MEDIC[place] ADVANTAGE Care Teams Casting Room Operator Relationship Specialty Start Date End Date Tamia Arnold MD [address] [place] [phone] PCP - General Internal Medicine 06/05/25
--- OUTSIDE RECORDS SUMMARY | 2025-06-29 12:13 | XMS_ITS | Data Portability ---
Author Organization [place] - [facility] Address [address] [place] [id number] Care Team Providers Care Purchasing Agent Name Role Phone JORGE LUIS MEHTA Primary Care Provider Assessment Encounter Date Assessment Date Assessment LastModified by Organization Details LastModified Time 01/13/2023 01/13/2023 Time On Scene with Patient: 01:00:21 Brief Overview: 82 y/o male c/o dysuria x 1 week. no prior hx of UTIs. he denies any flank pain, abdominal pain, vomiting. no hematuria, frequency, urgency or decreased stream. no fevers or chills. Vital Signs: BP 142/66, HR 78, RR 18, T 97.8, O2 98% RA Exam: 82 y/o well appearing male, appears younger than stated age, alert NAD sitting at his kitchen table. abdomen: obese, normal bowel sounds, soft, non distended, non tender. + suprapubic tenderness. no CVA tenderness. skin: warm and dry no rashes or lesions. DDx considered, with rationale: Pyelonephritis: considered but he is afebrile, no CVA tenderness. Nephrolithiasis: considered but he denies flank pain no hematuria. Sepsis: considered but he is afebrile, vitals stable, he does not appear septic. Urinary retention: considered but abdomen is non tender, he is urinating normally. Results/ work up: UA without blood, leuks, nitrates. Culture pending. Proper Personal Protective Equipment (PPE), including gloves, eye protection and masks were donned and doffed appropriately and all equipment cleaned using approved technique with germicidal disposable wipes prior to and after care of this patient according to [facility] infection prevention protocols. [email or web address] Not available 01/13/2023 10:52:55 Plan of Treatment Reminders Order Date Submit Date Provider Last Modified By Organization Details Last Modified Time Details Appointments None recorded. Lab urinalysis , dipstick 2022 023 [email or web address] [facility], [address], [place], [address], 10:15:04 culture, urine 2022 023 [place] [facility] (Centralized Electronic Ordering - All Locations), Patient Can Go To The Location Of Their Choice, [id number] 11:31:09 Referral None recorded. Procedures None recorded. Surgeries None recorded. Imaging None recorded. Medication Orders Pyridium 100 mg tablet 2022 023 [place] [id number], [address], [place], [address], 10:15:12 Patient TargetsNo targets recorded. Patient Instructions Encounter Date Encounter Id Patient Instructions Last Modified By Organization Details Last Modified Time 01/13/2023 [id number] BASIC INFORMATIO N Urinary tract infections(UTI) can involve any portion of the urinary tract. The most common presentation is a bladder infection/cystitis, which usually presents with urinary frequency, burning with urination, urgency, foul smelling cloudy urine and occasionally blood. Kidney infections are less frequent, but more serious, and present with fever, flank pain, malaise and sometimes shaking chills. UTI s are common in women because of the female anatomy, and much less common in males. INSTRUCTIONS Drink plenty of fluid, water is best. Drinking fluids will help to flush the bacteria from your body. Urinate every 2-3 hours Wear cotton underwear and avoid Nylon, Spandex and Lycra which tend to trap moisture and thong underwear which may facilitate UTI s . Avoid tub baths Avoid using Super Tampons Use only mild unscented soap to wash your genitals, such as Dove or Ivory, avoid heavily scented body washes. If you are sexually active urinate as soon as possible after intercourse. Yogurt and probiotics may help to establish a more healthy genital environment, and aid in prevention. MEDICATIONS 1.Antibiotics: Usually prescribed if you have a UTI, there are many different effective antibiotics available. It is important that you complete the course of antibiotics you are given. You should feel some improvement within 24-48 hours, if you do not it may be that the bacteria causing your infection is resistant to the prescribed medication. If a urine culture is obtained it will usually take at least 3-4 days to get the final result. 2. Anesthetic/Pain relievers: Phenazopyridine (Pyridium, Uribelle, AZO) is an anesthetic excreted in the urine. This medicine will turn your urine BRIGHT ORANGE! This is normal, and may stain your underwear can contacts. Take this medication as directed with food. 3. Tylenol and Ibuprofen can be helpful for the pain, fever and body aches that can be associated with a kidney infection. Please follow recommended dosing instructions on the bottle. FOLLOW UP 1. If your symptoms are not improving in 24-48 hours 2. If your symptoms are getting more severe 3. Any unusual vaginal discharge 4. Symptoms recur after you complete medication SEEK CARE IMMEDIATELY IF 1.You have shaking chills or temperature over 101.5 2. Severe flank pain 3. Persistent vomiting, unable to keep fluids or medicine down. 4. Worse despite medication. If you develop any new or worsening symptoms and need after hours care, please go to nearest ER and/or call 911. If you have additional concerns or develop a change in your condition between 8am-10pm, please call [facility] at [phone] to help navigate your care. [email or web address] Not available 01/13/2023 10:50:20 Reason for Referral None Reported. Results Created Date Observation Date Name Description Value Unit Range Abnormal Flag Note LastModifiedBy Organization Detail LastModifiedTime 01/14/2001/14/2023 URINE CULTU RE specimen description CLEAN CATCH (URINE ) Not Available [facility] (Centralized Electronic Ordering - All Locations) Patient Can Go To The Location Of Their Choice, [id number] 01/16/2023 11:31:09 01/14/2001/14/2023 URINE CULTU RE special requests NONE Not Available [facility] (Central[facility] Order[facility] - All Locations) Patient Can Go To The Location Of Their Choice, [id number] 01/16/2023 11:31:09 01/14/2001/16/2023 URINE CULTU RE culture abnormal >100, 000 COL/M L ENTER OCOCC US FAECA LIS This isola te was ident ified using Maldi -TOF syste m These AST resul ts were perfo rmed on the Micro scan ID and AST syste m Not Available [facility] (Centralized Electronic Ordering - All Locations) Patient Can Go To The Location Of Their Choice, 01/16/2023 11:31:09 01/14/2001/16/2023 URINE CULTU RE report status FINAL 2022 Not Available [facility] (Centralized Electronic Ordering - All Locations) Patient Can Go To The Location Of Their Choice, 01/16/2023 11:31:09 01/14/2001/16/2023 URINE CULTU RE organism ORGAN ISM >100, 000 COL/M L ENTER OCOCC US FAECA LIS This isola te was ident ified using Maldi -TOF syste m Not Available [facility] (Centralized Electronic Ordering - All Locations) Patient Can Go To The Location Of Their Choice, 01/16/2023 11:31:01/14/2001/16/2023 URINE CULTU RE method METHOD MIN. INHIB. CONC. (MCG/M L) Not Available [facility] (Centralized Electronic Ordering - All Locations) Patient Can Go To The Location Of Their Choice, 01/16/2023 11:31:09 01/14/2001/16/2023 URINE CULTU RE ampicillin AMPICI LLIN SUSCEP TIBLE susceptib le Not Available [facility] (Centralized Electronic Ordering - All Locations) Patient Can Go To The Location Of Their Choice, 01/16/2023 11:31:09 01/14/2001/16/2023 URINE CULTU RE ciprofloxaci n CIPROF LOXACI N SUSCEP TIBLE susceptib le Not Available [facility] (Centralized Electronic Ordering - All Locations) Patient Can Go To The Location Of Their Choice, 01/16/2023 11:31:09 01/14/2001/16/2023 URINE CULTU RE nitrofuranto in NITROF URANTO IN SUSCEP TIBLE susceptib le Not Available [facility] (Centralized Electronic Ordering - All Locations) Patient Can Go To The Location Of Their Choice, 01/16/2023 11:31:09 01/14/2001/16/2023 URINE CULTU RE levofloxacin LEVOFL OXACIN SUSCEP TIBLE susceptib le Not Available [facility] (Centralized Electronic Ordering - All Locations) Patient Can Go To The Location Of Their Choice, 01/16/2023 11:31:09 01/14/2001/16/2023 URINE CULTU RE vancomycin VANCOM YCIN SUSCEP TIBLE susceptib le Not Available [facility] (Centralized Electronic Ordering - All Locations) Patient Can Go To The Location Of Their Choice, 01/16/2023 11:31:09 01/14/2001/16/2023 URINE CULTU RE tetracycline TETRAC YCLINE RESIS TANT resistant Not Available [facility] (Centralized Electronic Ordering - All Locations) Patient Can Go To The Location Of Their Choice, 01/16/2023 11:31:09 01/14/20 23 01/16/2023 URINE CULTU RE gentamicin synergy GENTAM ICIN SYNERG Y ACTIVE IN SYNERG Y susceptib le Not Available [facility] (Centralized Electronic Ordering - All Locations) Patient Can Go To The Location Of Their Choice, 01/16/2023 11:31:09 01/14/20 23 01/16/2023 URINE CULTU RE streptomycin synergy STREPT OMYCIN SYNERG Y ACTIVE IN SYNERG Y susceptib le Not Available [facility] (Centralized Electronic Ordering - All Locations) Patient Can Go To The Location Of Their Choice, 01/16/2023 11:31:09 01/14/2001/13/2023 urina lysis , dipst ick Appearance clear Not Available [facility] [address], [place], [address], 01/13/2023 10:13:08 01/14/2001/13/2023 urina lysis , dipst ick Color dark yellow Not Available [facility] [address], [place], [address], 01/13/2023 10:13:08 01/14/2001/13/2023 urina lysis , dipst ick Glucose (ref: neg Neg Not Available [facility] [address] [place], [address], 01/13/2023 10:13:08 01/14/20 23 01/13/2023 urina lysis , dipst ick Bilirubin (ref: neg) Neg Not Available [facility] [address] [place], [address], 01/13/2023 10:13:08 01/14/20 23 01/13/2023 urina lysis , dipst ick Ketones (ref: neg) Neg Not Available [facility] [address] [place], [address], 01/13/2023 10:13:08 01/14/20 23 01/13/2023 urina lysis , dipst ick Specific [place] (ref: 1.003 - 1.035) 1.025 Not Available [facility] [address] [place], [address], 01/13/2023 10:13:08 01/14/20 23 01/13/2023 urina lysis , dipst ick Blood (ref: neg) Neg Not Available [facility] [address] [place], [address], 01/13/2023 10:13:08 01/14/20 23 01/13/2023 urina lysis , dipst ick pH (ref: 5.0-7.0) 5.0 Not Available [facility] [address] [place], [address], 01/13/2023 10:13:08 01/14/20 23 01/13/2023 urina lysis , dipst ick Protein (ref: neg) + Not Available [facility] [address] [place], [address], 01/13/2023 10:13:08 01/14/20 23 01/13/2023 urina lysis , dipst ick Urobilinogen (ref: 0.2-1.0) 0.2 Not Available [facility] [address] [place], [address], 01/13/2023 10:13:08 01/14/20 23 01/13/2023 urina lysis , dipst ick Nitrites (ref: neg) negati ve Not Available [facility] [address] [place], [address], 01/13/2023 10:13:08 01/14/20 23 01/13/2023 urina lysis , dipst ick Leukocytes (ref: neg) Neg Not Available [facility] [address] [place], [address], 01/13/2023 10:13:08 01/14/20 23 01/13/2023 urina lysis , dipst ick Location [facility], [facility], [address] [place] [address], [id number] [phone] Not Available [facility] [address] [place], [address], 01/13/2023 10:13:08 Result Notes None recorded. Medical Equipment None Reported. Allergies No known drug allergies Medications Name Sig Start Date Stop Date Status Note LastModified by Organization Details LastModified Time fluconazole 150 mg tablet TAKE 1 TABLET BY MOUTH EVERY 72 HOURS FOR 2 DOSES, NEEDED IF PENIS/MAXWELL IN RASH WORSENS active Not Available Not Available No t Available ciprofloxacin 500 mg tablet TAKE 1 TABLET BY MOUTH EVERY 12 HOURS FOR 10 DAYS active Not Available Not Available No t Available phenazopyridin e 100 mg tablet TAKE 1 TABLET 3 TIMES A DAY BY ORAL ROUTE DIRECTED FOR 2 DAYS active Not Available Not Available No t Available clotrimazole-b etamethasone 1 %-0.05 % topical cream APPLY TO AFFECTED AREA TWICE A DAY X14 DAYS NEEDED FOR RASH active Not Available Not Available No t Available lisinopril 5 mg tablet TAKE 1 TABLET BY MOUTH EVERY DAY active Not Available Not Available No t Available loratadine active Not Available Not Av ailable Not Available aspirin active Not Available Not Avail able Not Available lisinopril active Not Available Not Av ailable Not Available elderberry fruit active Not Available Not Available Not Available Multi For Him (no iron) active Not Available Not Available No t Available Vitals Date Recorded Respiratory rate Body temperature Heart rate Oxygen saturation Oxygen saturation in Arterial blood by Pulse oximetry Systolic And Diastolic Provider Name and Address Organization Details Last Updated DateTime 18 /min 97.8 [degF] 78 /min 98 % 98 % 142/66 mm[Hg] Not Available [facility] 10:07:04 Social History Question Answer Notes LastModified by OrganTopicmarks Details LastModified Time Tobacco Smoking Status Never Smoker HUMBERTO Tellez [address], [place], [address], [place] - [facility] 01/13/2023 10:04:35 Do You Have An Advance Directive? Yes [email or web address] Information not available 01/13/2023 What Is Your Code Status? DNR [email or web address] Information not available 01/13/2023 Fall Risk: Do You Feel Unsteady When Standing Or Walking? No [email or web address] Information not available 01/13/2023 Excessive Alcohol Or Drug Use No [email or web address] Information not available 01/13/2023 Does This Patient Have A PCP? Yes [email or web address] Information not available 01/13/2023 Has The Patient Seen Their PCP In The Past 6 Months? No [email or web address] Information not available 01/13/2023 Is This Patient In Hospice? No [email or web address] Information not available 01/13/2023 ADL: Do You Need Help With Daily Activities Such As Bathing, Preparing Meals, Dressing, Or Cleaning? No [email or web address] Information not available 01/13/2023 Social Support: Do You Feel Safe? Yes [email or web address] Information not available 01/13/2023 What Is Your Housing Situation Today? I Have Housing [email or web address] Information not available 01/13/2023 Sex: Unknown Functional Status Question Answer Note LastModified by Organizat ion Details LastModified Time Do you use any illicit or recreational drugs? No [email or web address] Information not available 01/13/2023 What is your level of alcohol consumption? Occasional [email or web address] Information not available 01/13/2023 Mental Status None recorded. Family History Relationship Description Onset Age of this Age Resolved Age Notes LastModified by Organization Details LastModified Time Mother Hypertensive disorder [email or web address] Not available 01/13 10:04:12 Medical History Condition Response Coronary Artery Disease N Parkinson's Disease N Depression N COPD N Hypothyroidism N A-fib N Diabetes N CHF N Cancer Y Dementia N Stroke N Asthma N High Cholesterol N Rheumatoid Arthritis N Pulmonary Embolism N Hypertension Y Osteoporosis N Kidney Disease N Past Encounters Encounter ID Performer Location Encounter Start Date Encounter Closed Date Diagnosis/Indication Diagnosis SNOMED-CT Code Diagnosis ICD10 Code Diagnosis IMO Codes Diagnosis Note [id number] [facility] [address] [place] [address] 01/13/2023 09:56:12 01/14/2023 12:39:38 Dysuria 46269698 R30.0 Status of condition: Acute. Testing/Re sults: UA not suggestive of UTI, but will send culture to r/o. Discussion :push fluids, avoid caffeine.s tart Rx Pyridium 100 mg 1 tab PO tid x 2 days. this will change the color of your urine to orange.Uri ne culture is pending. Plan, Medication Management & Follow-up recommenda tions:foll ow up with pcp in 3-5 days or sooner prn.go to the ER with worsening symptoms cp, sob, fever, dizziness, weakness, abdominal pain, vomiting, hematuria, flank pain, decreased urine out put. Essential hypertension [id number] I10 Status of condition: Exacerbati on/Acute on chronic. Testing/Re sults: BP slightly elevated today at 142/66. Discussion : Pt is asymptomat ic. he has taken his medication today. Plan, Medication Management & Follow-up recommenda tions:foll ow up with pcp as scheduled next week.go to the ER with worsening symptoms cp, sob, dizziness, weakness, HAs, edema, vision changes. Health Concerns Section Related Observation LastModified by Organization Detai ls LastModified Time None Recorded Concern Status LastModified by Organization Details LastModified Time None Recorded Advance Directives Directive Y: Payers Insurance Date Sequence Insurance Name Policy Number Policy [place] Covered Member ID [place] Member ID Guarantor Name 01/13/[address] [facility] - MEDICARE PREFERRED (MEDICARE REPLACEMENT HMO[facility] [id number] Baltazar Mccann 01/13/2023 1 [facility] MED[facility] PREFERRED (MEDICARE REPLACEMENT HMO) [facility] [id number] Baltazar Mccann 01/13/2023 1 [facility] MEDIC[facility] PREFERRED (MEDICARE REPLACEMENT HMO) [facility] [id number] Baltazar Mccann 01/13/2023 1 *SELF PAY* Baltazar Mccann [id number] Baltazar Mccann Notes Date Note Type Note Provider Name and Address Organization Details Recorded Time 01/13/2023 text/html General HPI Template - DHReported by Patient 82 y/o male new to [facility] and new to provider with hx of obesity, seasonal allergies, basal cell carcinoma face, HTN. pt reports for the past 1 week he has had burning when he urinates. he denies frequency, urgency, decreased stream. no fever, chills, hematuria, flank pain or abdominal pain. he denies any nausea, vomiting or diarrhea. no cp, sob. pt denies any prior hx of UTIs, kidney stones. pt states he did reduce his fluid intake thinking that would help as he would not have to urinate as much but states that only made it worse. HUMBERTO Tellez [address], [place], [address], [place] - [facility] 01/13/2023 19:02:24
== END 2025-06-29 11:10 | disposition home or self-care (01) ==
LOC: HO.HMCFM 10:23
PROVIDERS: PCP Internal Medicine; Visit Provider Internal Medicine
DX: E11.9 Type 2 diabetes mellitus without complications (principal); I10 Essential (primary) hypertension; Z85.820 Personal history of malignant melanoma of skin; Z85.828 Personal history of other malignant neoplasm of skin

== ENCOUNTER → 2025-06-29 10:22 | Outpatient (BNVA) | payer MEDICARE, SELFPAY | PROVIDERS: PCP Internal Medicine; Visit Provider Internal Medicine | DX: E11.9 Type 2 diabetes mellitus without complications (principal); I10 Essential (primary) hypertension; C44.310 Basal cell carcinoma of skin of unspecified parts of face | CPT/HCPCS: 99212 ==